=== PATIENT | female | born 1980 | race Caucasian/White ===

== ENCOUNTER 2019-04-15 12:52 | Emergency (ER) | payer OTHER, SELFPAY ==
--- NOTE | 2019-04-15 12:56 | ED.DENTAL ---
HPI - Dental/Oral General Chief complaint: Dental/Oral Stated complaint: sinus issues/toothache Time Seen by Provider: 04/15/19 13:07 Source: patient and RN notes reviewed Mode of arrival: ambulatory Limitations: no limitations History of Present Illness HPI Narrative: 38-year-old female presents with concern for left upper dental pain. Reports she recently lost a filling, her dentist told her to use [id number] pain relief gel. She reports that the pain continued to get worse despite the [id number] pain relief gel. She reports she is also had sinus congestion for 10 to 11 days. She denies taking any medications for the symptoms. MD Complaint: tooth pain Teeth map: 1. Broken tooth Related Data Allergies Allergy/AdvReac Type Severity Reaction Status Date / Time strawberry Allergy Unknown Verified 05/05/17 15:17 tramadol AdvReac Unknown NAUSEATED Verified 08/23/17 09:11 Review of Systems Review of Systems: Narrative: CONSTITUTIONAL: Denies malaise, chills, sweats, or fever. EYES: Denies visual changes ENT: Reports rhinorrhea, congestion, sinus pain. Denies otalgia or sore throat.. Reports left upper dental pain CARDIOVASCULAR: Denies chest pain, palpitations, or edema. RESPIRATORY: Denies cough or dyspnea. SKIN: Denies rash or itching. MUSCULOSKELETAL: Denies myalgia. NEUROLOGIC: Denies headache. All systems reviewed & are unremarkable except as noted in HPI and below PMFSH Comments At time of signature, agree with nursing past medical, surgical, social and family history. There is no relevant family history pertinent to the presenting complaint Exam Narrative: Exam Narrative: GENERAL: Well-appearing, well-nourished, and in no acute distress. HEAD: Normocephalic, atraumatic. EYES: PERRLA, conjunctivae clear ENT: Nares clear, turbinates erythematous with clear discharge. Mucous membranes moist. TM pearly chambers with sharp light reflex bilaterally; no tragal tenderness. Oropharynx without erythema or lesions. Tonsils not enlarged and without exudate. Caries, missing teeth, broken teeth noted. Mild left upper facial edema NECK: Supple. No lymphadenopathy. CHEST: No respiratory distress. Speaks in full sentences. HEART: Regular rate and rhythm. No murmur heard. Normal peripheral pulses. SKIN: Warm, dry, no rash. NEURO: Alert and oriented x3. PSYCH: Normal mood and affect Course Course Emergency Course: Patient is aware of diagnosis, understands and agrees to treatment plan. Anticipatory guidance given. Patient agrees to follow-up as directed and is aware of reasons to seek care at the emergency department. Portions of this record may have been created with voice recognition software Vital Signs Vital signs: Vital Signs Temperature 97.9 F 04/15/19 13:03 Pulse Rate 93 04/15/19 13:03 Respiratory Rate 16 04/15/19 13:03 Blood Pressure 138/100 H 04/15/19 13:03 Pulse Oximetry 99 04/15/19 13:03 Temperature 97.9 F 04/15/19 13:03 Pulse Rate 93 04/15/19 13:03 Respiratory Rate 16 04/15/19 13:03 Blood Pressure 138/100 H 04/15/19 13:03 Pulse Oximetry 99 04/15/19 13:03 Reviewed. Patient has been instructed to follow up with her primary care provider within the next week regarding her elevated blood pressure today. MDM - Dental/Oral MDM Narrative Medical decision making narrative: Patients pain and complaint coupled with physical findings are consistant with dentalgia. There are no focal signs of space occupying lesions that are compromising to the airway; no dysphagia, odynophagia, dysphonia, or dyspnea. No uvular deviation or soft palate edema. Patient is non-toxic appearing. The floor of the mouth is soft with no signs of Con's Angina; no induration below mandible, no neck pain. Patient is without trismus or drooling and able to swallow secretions. Patient is felt appropriate for discharge home with dental follow up. Critical Care Time Critical Care Time Critical Care Tj
[2019-04-15 13:03] VITALS: BP 138/100; PULSE 93; RESP 16; TEMP 36.6; O2SAT 99
== END 2019-04-15 13:18 | disposition home or self-care (01) ==
PROVIDERS: Emergency Provider Nurse Practitioner; PCP Internal Medicine
DX: K08.89 Other specified disorders of teeth and supporting structures (principal); N80.9 Endometriosis, unspecified
CPT/HCPCS: 99213; G0463

== ENCOUNTER 2019-05-26 18:04 | Emergency (ER) | payer OTHER, SELFPAY ==
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
[2019-05-26 18:08] VITALS: BP 123/72; PULSE 96; RESP 16; TEMP 36.7; O2SAT 99
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
== END 2019-05-26 18:58 | disposition home or self-care (01) ==
PROVIDERS: Emergency Provider Nurse Practitioner Family; PCP Internal Medicine
DX: S16.1XXA Strain of muscle, fascia and tendon at neck level, initial encounter (principal); V43.52XA Car driver injured in collision with other type car in traffic accident, initial encounter; N80.9 Endometriosis, unspecified
CPT/HCPCS: 72050; 99213; G0463

== ENCOUNTER 2020-05-13 11:47 | Emergency (ER) | payer BC, MEDICAID, SELFPAY ==
[2020-05-13 11:56] VITALS: BP 120/80; PULSE 114; RESP 20; TEMP 36.6; O2SAT 99
--- NOTE | 2020-05-13 12:15 | ED.GENADULT ---
HPI - General Adult General Chief complaint: Dental/Oral Stated complaint: DENTAL PAIN/FACIAL SWELLING Time Seen by Provider: 05/13/20 12:15 Source: patient and RN notes reviewed Mode of arrival: ambulatory Limitations: no limitations History of Present Illness HPI narrative: 39-year-old female presents with complaints of left upper dental pain for the past 2 days. Caitlin reports awaken this morning with swelling to LT side of face after having dental pain for the past 48 hours. Gargling with original Listerine, peroxide, Ibuprofen last on 05/12/20 and Tylenol last this 08:00 this morning without relief. Denies any drainage. No fever. No neck swelling. No limitation with speaking or swallowing. Has history of dental caries. Has not seen a dentist recently, due to see one next month per patient. No dental trauma. No oral lesions. Exacerbating factors consist of chewing on LT side, eating and drinking cold items. No relieving factors. No dentures or bridges. Tolerating liquids well. LMP hysterectomy. Remains active. The patient reports she have not been diagnosed with COVID-19. The patient reports she is not waiting for the results of a COVID-19 lab test. The patient reports she do not have chills, weakness, or fatigue. The patient reports she do not have a new or worsening cough or shortness of breath. Denies chest pain. The patient reports she do not have any rhinorrhea, congestion, sore throat, loss of taste or smell, nausea, vomiting, abdominal pain, and diarrhea. Denies recent traveling. Denies concerns for COVID-19 or exposures been home with limited outdoor exposure except for essential household needs, work, and return home. At this time, patient is not suspected of having COVID-19. Some parts of this dictation were generated by voice recognition software and may contain typographical and/or grammatical inaccuracies. Related Data Allergies Allergy/AdvReac Type Severity Reaction Status Date / Time strawberry Allergy Unknown Hives Verified 05/13/20 11:53 tramadol AdvReac Unknown NAUSEATED Verified 05/13/20 11:53 Review of Systems Review of Systems: Narrative: CONSTITUTIONAL: Denies fever, chills, sweats. EYES: Denies visual changes, redness, discharge. ENT: Denies rhinorrhea, congestion, sore throat, otalgia. Complains of LT upper dental pain. CARDIOVASCULAR: Denies chest pain, palpitations, edema. RESPIRATORY: Denies dyspnea, wheezing, cough. GASTROINTESTINAL: Denies abdominal pain, nausea, vomiting, diarrhea. SKIN: Denies rash or itching. MUSCULOSKELETAL: Denies acute back pain, joint pain, or myalgia. NEUROLOGIC: Denies numbness or focal weakness. PSYCHIATRIC: Denies anxiety or depression. All systems reviewed & are unremarkable except as noted in HPI and below. [facility] Past Medical History Medical History (Updated 05/14/20 @ 00:01 by Mariel Gardner) Endometriosis determined by laparoscopy Surgical History Surgical History (Updated 05/13/20 @ 12:26 by ADRIAN Brown) History of hysterectomy History of laparoscopy History of tonsillectomy Family History Family History (Updated 05/13/20 @ 12:27 by ADRIAN Brown) Father Diabetes mellitus Mother Family history of thyroid problem Social History Social History (Updated 05/13/20 @ 12:27 by ADRIAN Brown) Smoking status: Current every day smoker Tobacco type: cigarettes Second hand tobacco smoke exposure: Yes (Spouse) Alcohol intake: current Substance use: never Living arrangements: with family Occupation/Education: occupation Gender identity (if verbalized by the patient): Female Sexual Orientation (if Verbalized by the Patient): Straight or Heterosexual Comments At time of signature, agree with nurse past medical, surgical, social, and family history. There is relevant patient's past medical history pertinent to the presenting complaint, no relevant family history pertinent to the presen
== END 2020-05-13 12:34 | disposition home or self-care (01) ==
PROVIDERS: Emergency Provider Nurse Practitioner Family; PCP Internal Medicine
DX: K08.89 Other specified disorders of teeth and supporting structures (principal); K02.9 Dental caries, unspecified; F17.210 Nicotine dependence, cigarettes, uncomplicated; N80.9 Endometriosis, unspecified
CPT/HCPCS: 99213; G0463

== ENCOUNTER 2021-08-13 09:09 | Emergency (ER) | payer BC, MEDICAID, SELFPAY ==
[2021-08-13 09:21] VITALS: BP 130/92; PULSE 103; RESP 16; TEMP 37.3; O2SAT 99
--- NOTE | 2021-08-13 09:29 | ED.FEMALEGU ---
HPI - Female Genitourinary General Chief complaint: Urogenital-Female Stated complaint: bladder infection Time Seen by Provider: 08/13/21 09:30 Source: patient, RN notes reviewed and old records reviewed Mode of arrival: ambulatory Limitations: no limitations History of Present Illness HPI Narrative: 40-year-old female presents to the [facility] with complaints of I think I have a UTI. Since Thursday, 4 days has had urinary urgency, frequency, pressure and low back pain. History of a hysterectomy. Denies chances of or STDs. MD elicited complaint: UTI Onset (ago): day(s) (4) Vaginal discharge: none Urinary symptoms: Dysuria, Frequency and Foul Smelling Urine Treatment prior to arrival: none Related Data Allergies Allergy/AdvReac Type Severity Reaction Status Date / Time strawberry Allergy Unknown Hives Verified 08/13/21 09:36 tramadol AdvReac Unknown NAUSEATED Verified 08/13/21 09:36 Review of Systems Review of Systems: All systems reviewed & are unremarkable except as noted in HPI and below Constitutional: Constitutional: Reports no additional constitutional complaints, Denies chills and Denies fatigue Eyes: Eyes: Reports no additional eye complaints ENT: Reports system reviewed and no additional complaints, except as documented Cardiovascular: Cardiovascular: Reports no additional cardiovascular complaints Respiratory: Respiratory: Reports no additional respiratory complaints Gastrointestinal: Gastrointestinal: Reports no additional gastrointestinal complaints, Denies abdominal pain, Denies diarrhea, Denies nausea and Denies vomiting Genitourinary: Genitourinary: Reports as per HPI, Reports dysuria, Denies pelvic pain, Denies flank pain, Denies urinary incontinence and Denies vaginal discharge Musculoskeletal: Musculoskeletal: Reports no additional musculoskeletal complaints and Denies back pain Integumentary/Breasts: Skin/Breast: Reports system reviewed and no additional complaints, except as docu Neurologic: Reports system reviewed and no additional complaints, except as documented Psychiatric: Psychiatric: Reports no additional psychiatric complaints Endocrine: Endocrine: Denies fatigue Allergic/Immunologic: Allergic/Immunologic: Reports no additional allergic/immunologic complaints PMF Past Medical History Medical History Endometriosis determined by laparoscopy Surgical History Surgical History History of hysterectomy History of laparoscopy History of tonsillectomy Family History Family History Father Diabetes mellitus Mother Family history of thyroid problem Social History Social History Smoking status: Current every day smoker Tobacco type: cigarettes Second hand tobacco smoke exposure: Yes (Spouse) Alcohol intake: current Substance use: never Gender identity (if verbalized by the patient): Female Sexual Orientation (if Verbalized by the Patient): Straight or Heterosexual Comments At the time of my signature, I reviewed and agree with the nursing past medical, surgical, social, and family history. There is no relevant family history pertinent to the patient complaint. Exam Const: General: healthy appearing, no acute distress and alert Nutritional Appearance: well nourished Orientation/consciousness: patient oriented x3 Limitations: no limitations HENMT: Head: normal to inspection Eyes: Conjunctivae: conjunctivae normal Pupils: Equal, round and reactive pupils present Neck: Neck: normal visual inspection, no lymphadenopathy and no meningeal signs Chest: Chest palpation & inspection: normal inspection of the chest and abnormal inspection of the chest Resp: Effort & Inspection: normal respiratory effort Auscultation: clear to auscultation b
== END 2021-08-13 09:40 | disposition home or self-care (01) ==
PROVIDERS: Emergency Provider Nurse Practitioner
DX: R30.0 Dysuria (principal); F17.210 Nicotine dependence, cigarettes, uncomplicated; N80.9 Endometriosis, unspecified
CPT/HCPCS: 81003; 87077; 87086; 87186; 99213; G0463

== ENCOUNTER 2022-01-06 18:19 | Emergency (ER) | payer OTHER, BC, MEDICAID, SELFPAY ==
--- NOTE | 2022-01-06 18:28 | ED.URI ---
HPI - URI/Sore Throat General Chief Complaint: Upper Respiratory Infection Stated Complaint: Coughing, Headaches Time Seen by Provider: 01/06/22 19:20 Source: patient and RN notes reviewed Mode of arrival: ambulatory Limitations: no limitations History of Present Illness HPI Narrative: 31-year-old female presents concern. Reports symptoms started 5 days ago and she was febrile until Thursday. She reports low-grade fever today. She reports she has been taking [id number] medications relief. She denies sore throat, shortness of breath. MD elicited complaint: cough Related Data Allergies Allergy/AdvReac Type Severity Reaction Status Date / Time strawberry Allergy Unknown Hives Verified 01/06/22 19:01 tramadol AdvReac Unknown NAUSEATED Verified 01/06/22 19:01 Review of Systems Review of Systems: CONSTITUTIONAL: Reports malaise, low-grade fever. EYES: Denies visual changes, redness, or discharge. ENT: Reports rhinorrhea, congestion. Denies sinus pain, otalgia and sore throat. CARDIOVASCULAR: Denies chest pain, palpitations, or edema. RESPIRATORY: Reports cough, chest congestion. Denies dyspnea. GASTROINTESTINAL: Denies abdominal pain, nausea, vomiting, diarrhea SKIN: Denies rash or itching. MUSCULOSKELETAL: Denies myalgia. NEUROLOGIC: Reports headache. All systems reviewed & are unremarkable except as noted in HPI and below PMFSH Past Medical History Medical History Endometriosis determined by laparoscopy Surgical History Surgical History History of hysterectomy History of laparoscopy History of tonsillectomy Family History Family History Father Diabetes mellitus Mother Family history of thyroid problem Social History Social History Smoking status: Current every day smoker Tobacco type: cigarettes Second hand tobacco smoke exposure: Yes (Spouse) Alcohol intake: current Substance use: never Gender identity (if verbalized by the patient): Female Sexual Orientation (if Verbalized by the Patient): Straight or Heterosexual Comments At time of signature, agree with nursing past medical, surgical, social and family history. There is no relevant family history pertinent to the presenting complaint Exam Narrative: GENERAL: Nontoxic-appearing and in no acute distress. HEAD: Normocephalic EYES: PERRLA, conjunctivae clear ENT: Nares clear, clear discharge. Mucous membranes moist. TM pearly chambers with dull light reflex bilaterally; no tragal tenderness. Oropharynx not erythematous without lesions. Tonsils not enlarged and without exudate, no drooling, no hoarseness, no trismus, uvula midline. NECK: Supple. No lymphadenopathy CHEST: Clear to auscultation, breath sounds equal. No wheezing, rhonchi, rales, or stridor. No respiratory distress, speaks in full sentences. Cough noted HEART: Regular rate and rhythm. No murmur heard. SKIN: Warm, dry, no rash. NEURO: Alert and oriented x3. PSYCH: Normal mood and affect Course Course Emergency Course: Patient is aware of diagnosis, understands and agrees to treatment plan. Anticipatory guidance given. Patient agrees to follow-up as directed and is aware of reasons to seek care at the emergency department. Portions of this record may have been created with voice recognition software Level of Care: Express Care Visit Vital Signs Vital signs: Reviewed. MDM - URI/Sore Throat MDM Narrative Medical decision making narrative: Differential diagnosis considered: Corbett virus, strep pharyngitis, allergic rhinitis, upper respiratory tract infection, sinusitis, rhinosinusitis, nasopharyngitis. viral pharyngitis, otitis media, otitis externa, pneumonia, bronchitis, viral cough syndrome, viral syndrome, and influenza. Exam findings show no acute concer
[2022-01-06 18:47] VITALS: BP 100/65; PULSE 98; RESP 18; TEMP 37.9; O2SAT 100
== END 2022-01-06 19:45 | disposition home or self-care (01) ==
PROVIDERS: Emergency Provider Nurse Practitioner; PCP Nurse Practitioner Family
DX: J40 Bronchitis, not specified as acute or chronic (principal); F17.210 Nicotine dependence, cigarettes, uncomplicated; N80.9 Endometriosis, unspecified
CPT/HCPCS: 87804; 99213; G0463

== ENCOUNTER 2022-02-08 13:54 | Emergency (ER) | payer OTHER, BC, MEDICAID, SELFPAY ==
[2022-02-08 14:09] VITALS: BP 114/76; PULSE 92; RESP 18; TEMP 36.5; O2SAT 100
--- NOTE | 2022-02-08 14:38 | ED.URI ---
HPI - URI/Sore Throat General Chief Complaint: Upper Respiratory Infection Stated Complaint: Sinus Time Seen by Provider: 02/08/22 14:38 Source: patient Mode of arrival: ambulatory History of Present Illness HPI Narrative: 41 y/o female presented for c/o left facial swelling, tightness, and ear pain since yesterday. States it feels like her previous sinus infections. She also endorses 'bad teeth.' Pain with chewing. Denies tinnitus, dizziness, nausea, vomiting, fever or chills. Taking tylenol and ibuprofen for symptoms. Related Data Home Medications Medication Instructions Recorded Confirmed alprazolam 0.25 mg tablet 0.25 mg PO DIRECTED 02/08/22 02/08/22 buspirone 10 mg tablet 10 mg PO DAILY 02/08/22 02/08/22 Allergies Allergy/AdvReac Type Severity Reaction Status Date / Time strawberry Allergy Unknown Hives Verified 02/08/22 14:03 tramadol AdvReac Unknown NAUSEATED Verified 02/08/22 14:03 Review of Systems Review of Systems: CONSTITUTIONAL: Denies body aches, fever, chills ENT: Denies rhinorrhea, congestion, sore throat, or otalgia. Reports left facial pain CARDIOVASCULAR: Denies chest pain, palpitations RESPIRATORY: Denies cough or dyspnea. SKIN: Denies rash, itching, or wounds. MUSCULOSKELETAL: Denies myalgia. NEUROLOGIC: Denies headache, numbness, tingling, or weakness. [facility] Past Medical History Medical History Endometriosis determined by laparoscopy Surgical History Surgical History History of hysterectomy History of laparoscopy History of tonsillectomy Family History Family History Father Diabetes mellitus Mother Family history of thyroid problem Social History Social History Smoking status: Current every day smoker Tobacco type: cigarettes Second hand tobacco smoke exposure: Yes (Spouse) Alcohol intake: current Substance use: never Gender identity (if verbalized by the patient): Female Sexual Orientation (if Verbalized by the Patient): Straight or Heterosexual Comments At time of signature, I have reviewed and agree with nursing past medical, surgical, social and family history unless otherwise noted. Please see nursing chart for further information. There is no relevant family history pertinent to the presenting complaint Exam Narrative: GENERAL: Appears in pain; no acute distress. HEAD: Normocephalic, atraumatic. EYES: EOMI. No redness or drainage. Conjunctivae normal. ENT: Dental pain with palpation location of #13; multiple broken teeth, caries, and missing teeth; Mucous membranes pink and moist. TMs normal bilaterally. Throat normal. Uvula midline. NECK: Normal AROM. No lymphadenopathy. CHEST: Clear to auscultation. HEART: Regular rate and rhythm. No murmur appreciated. SKIN: Warm, dry, no rash. Normal skin turgor. NEURO: No focal deficits. Alert and oriented x3. Course Course Emergency Course: Patient is aware of diagnosis, understands and agrees to treatment plan. Anticipatory guidance given. Patient agrees to follow-up as directed and is aware of reasons to seek care at the emergency department. Portions of this record may have been created with voice recognition software Level of Care: Express Care Visit Vital Signs Vital signs: Vital Signs Temperature 97.7 F 02/08/22 14:09 Pulse Rate 92 02/08/22 14:09 Respiratory Rate 18 02/08/22 14:09 Blood Pressure 114/76 02/08/22 14:09 Pulse Oximetry 100 02/08/22 14:09 Oxygen Delivery Room Air 02/08/22 14:09 Temperature 97.7 F 02/08/22 14:09 Pulse Rate 92 02/08/22 14:09 Respiratory Rate 18 02/08/22 14:09 Blood Pressure 114/76 02/08/22 14:09 Pulse Oximetry 100 02/08/22 14:09 Oxygen Delivery Room Air 02/08/22 14:09 MDM - URI/S
== END 2022-02-08 14:47 | disposition home or self-care (01) ==
PROVIDERS: Emergency Provider Nurse Practitioner Family; PCP Nurse Practitioner Family
DX: K02.9 Dental caries, unspecified (principal); F17.210 Nicotine dependence, cigarettes, uncomplicated; N80.9 Endometriosis, unspecified
CPT/HCPCS: 99213; G0463

== ENCOUNTER 2022-08-02 08:56 | Emergency (ER) | payer OTHER, MEDICAID, SELFPAY ==
--- NOTE | 2022-08-02 09:02 | ED.DENTAL ---
HPI - Dental/Oral General Chief complaint: Dental/Oral Stated complaint: TOOTHACHE Time Seen by Provider: 08/02/22 09:02 Source: patient and RN notes reviewed History of Present Illness HPI Narrative: Patient is a 41-year-old female presents to urgent care with complaints of left upper dental pain. Patient states it started approximately 2-3 days ago. Patient has had poor dental hygiene for many years and does have a dentist appointment in September. Denies any fever, nausea. Patient has been taking dual action Advil with acetaminophen. No other acute complaints. Distress noted. Patient aware of the plan of care. Some parts of this dictation were generated by voice recognition software and may contain typographical and/or grammatical inaccuracies. Related Data Home Medications Medication Instructions Recorded Confirmed alprazolam 0.25 mg tablet 0.25 mg PO DIRECTED 02/08/22 08/02/22 buspirone 10 mg tablet 10 mg PO DAILY 02/08/22 08/02/22 Allergies Allergy/AdvReac Type Severity Reaction Status Date / Time strawberry Allergy Unknown Hives Verified 08/02/22 09:08 tramadol AdvReac Unknown NAUSEATED Verified 08/02/22 09:08 Review of Systems Review of Systems: CONSTITUTIONAL: Denies fever, chills, or sweats. EYES: Denies visual changes, redness, or discharge. ENT: Denies rhinorrhea, congestion, sore throat, or otalgia. Reports of left upper dental pain and swelling CARDIOVASCULAR: Denies chest pain, palpitations, or edema. RESPIRATORY: Denies cough or dyspnea. GASTROINTESTINAL: Denies abdominal pain, nausea, vomiting, or diarrhea. GENITOURINARY: Denies dysuria or hematuria. SKIN: Denies rash or itching. MUSCULOSKELETAL: Denies back pain, joint pain, or myalgia. NEUROLOGIC: Denies headache, numbness, or weakness. All other systems reviewed are negative, except as documented in HPI. FORMERLY [facility] Past Medical History Medical History Endometriosis determined by laparoscopy Surgical History Surgical History History of hysterectomy History of laparoscopy History of tonsillectomy Family History Family History Father Diabetes mellitus Mother Family history of thyroid problem Social History Social History Smoking status: Current every day smoker Tobacco type: cigarettes Second hand tobacco smoke exposure: Yes (Spouse) Alcohol intake: current Substance use: never Living arrangements: with family Occupation/Education: occupation Gender identity (if verbalized by the patient): Female Sexual Orientation (if Verbalized by the Patient): Straight or Heterosexual Comments At the time of my signature, I reviewed and agree with the nursing past medical, surgical, social, and family history. There is no relevant family history pertinent to the patient complaint. Exam Narrative: GENERAL: This is a well-nourished, well-developed patient, in no apparent distress. HEAD: normocephalic, atraumatic. EYES: PERRL. Sclera clear/white. Vision is grossly intact. EARS: External ears normal NOSE: External nose normal with no obvious nasal discharge, nares without redness, no rhinorrhea. THROAT: Mucous membranes moist DENTAL: Moderate erythema/edema with notable dental abscess above the left upper canine, avulsed dentition with large caries throughout,. On all/gingivitis NECK: Neck supple, SKIN: warm, intact with no suspicious lesions or rash, good texture and turgor. NEURO: awake, alert, and oriented to person, place and time. There were no obvious focal neurologic abnormalities. EXTREMITIES: No clubbing, cyanosis, or edema. Course Course Level of Care: Express Care Visit Vital Signs Vital signs: Vital Signs Temperature 98.7 F 08/02/22 09:11 Pulse Rate 91 08/02/22 09:11 Respi
[2022-08-02 09:11] VITALS: BP 133/82; PULSE 91; RESP 16; TEMP 37.1; O2SAT 100
== END 2022-08-02 09:28 | disposition home or self-care (01) ==
PROVIDERS: Emergency Provider Nurse Practitioner Family; PCP Nurse Practitioner Family
DX: K04.7 Periapical abscess without sinus (principal); K02.9 Dental caries, unspecified; F17.210 Nicotine dependence, cigarettes, uncomplicated
CPT/HCPCS: 99213; G0463

== ENCOUNTER 2023-11-07 09:41 | Outpatient (CLI) | payer OTHER, SELFPAY ==
--- NOTE | ~2023-11-07 | US_ITS ---
EXAMINATION: US pelvic complete w TV DATE: 11/07/2023 10:32 INDICATION: R10.2 - Pelvic and perineal pain TECHNIQUE: Multiple transabdominal and endovaginal sonographic images of the pelvis were obtained. COMPARISON: None. FINDINGS: Uterus: Surgically absent. Right Ovary: Not confidently identified. Large anechoic area with areas of shadowing in the right adn exa. Left Ovary: 5.3 x 3.7 x 3.4 cm. Vascular flow is present. 3.1 cm circumscribed cystic ovarian lesion with nodular appearing nonvascular intraluminal echogenicity and a thick septum. Somewhat tubular julio earing, 3.5 cm, serpiginous, anechoic structure adjacent to the ovary. There is no free fluid in the pelvis. IMPRESSION: Complex 3.1 cm left ovarian cyst. Possible hydrosalpinx on the left. Right ovary not confidently visualized. Large anechoic area in the right adnexa may represent artifact from bowel or large adnexal or other l ower abdominal/pelvic lesion. Recommend pelvic MRI without and with contrast for further evaluation. Reviewed, dictated and finalized at location K. IMPRESSION: Complex 3.1 cm left ovarian cyst. Possible hydrosalpinx on the left. Right ovary not confidently visualized. Large anechoic area in the right adnexa may represent artifact from bowel or la rge adnexal or other lower abdominal/pelvic lesion. Recommend pelvic MRI without and with contrast for further evaluation.
== END 2023-11-07 09:42 | disposition home or self-care (01) ==
PROVIDERS: PCP Nurse Practitioner; Visit Provider Obstetrics & Gynecology
DX: R10.2 Pelvic and perineal pain (principal); N83.202 Unspecified ovarian cyst, left side
CPT/HCPCS: 76830; 76856

== ENCOUNTER 2023-12-03 12:32 | Outpatient (CLI) | payer OTHER, SELFPAY ==
--- NOTE | ~2023-12-03 | MR_ITS ---
EXAMINATION: MR pelvis wo/w con DATE: 12/03/2023 13:46 INDICATION: Ovarian cyst TECHNIQUE: Magnetic resonance imaging (MRI) of the pelvis was performed without and with 17 mL Multih ance intravenous contrast. Fullfield sequences of the pelvis included axial and coronal T2-weighted S S FSE, coronal 2D FIESTA, axial T1-weighted FSPGR, axial dual-echo T1-weighted FSPGR and axial T1 shahla ghted LAVA. Small field of view sequences included axial, sagittal and coronal T2-weighted FSE cente red on the uterus and adnexa. Postcontrast sequences included a time course axial T1-weighted LAVA w ith full-field of view of the pelvis. COMPARISON: Pelvic ultrasound dated 11/07/2023 FINDINGS: The uterus is not identified and has likely been surgically resected. Fluid-filled tubular and serpig inous left-sided hydrosalpinx measuring up to 10 mm in maximal diameter. Imaging is a T2 hyperintense bilateral ovarian follicles measuring up to 1.4 cm on the left and 1.3 cm on the right. Correlation of the configuration complex cystic lesion identified on the prior ultrasound suggests this represent s the fimbrial side of the dilated fallopian tube. Visualized portion of the bowels are unremarkable. Bladder is normal. No pathologically enlarged pelvic or inguinal lymphadenopathy. 1.3 cm Bartholin's gland cyst at the left side of the introitus. There is no free fluid in the pelvis. T1 hyperintense fat saturating hemangioma at the right side of the L5 vertebral body. Bones are otherwise unremarkabl e with otherwise normal marrow signal. IMPRESSION: 1. Status post hysterectomy with left-sided hydrosalpinx with a few bilateral simple appearing bilate ral ovarian follicles. No suspicious ovarian lesions identified. Reviewed, dictated and finalized at location B. IMPRESSION: 1. Status post hysterectomy with left-sided hydrosalpinx with a few bilateral s imple appearing bilateral ovarian follicles. No suspicious ovarian lesions iden tified.
== END 2023-12-03 12:33 | disposition home or self-care (01) ==
PROVIDERS: PCP Obstetrics & Gynecology; Visit Provider Obstetrics & Gynecology
DX: N83.299 Other ovarian cyst, unspecified side (principal)
CPT/HCPCS: 72197; A9577

== ENCOUNTER 2023-12-28 01:33 | Day surgery (SDC) | payer OTHER, SELFPAY ==
--- NOTE | 2023-12-21 16:22 | PC.NURSE ---
Report to the Outpatient Waiting Room, entrance under the green pavilion located off [facility], at time ___0930____ on date __[id number] . Planned Procedure Time: ___1130 .? Time changes happen often and if your time is changed the preop area will call you the afternoon before. - You and your visitor will be asked to self-screen and do not enter if you have any COVID symptoms. Please call surgeon if you need to reschedule. - A mask is optional within the hospital at this time. Patients may have clear liquids (water, carbonated beverages, clear teas, apple juice) until 3 hours prior to surgery with a maximum of 20 ounces. (please stop at 0830) - No food from midnight until time of surgery and no smoking Take only the following medications with a SIP of water on the morning of surgery: n/a (ONLY TAKE YOUR XANAX IF YOU ARE HAVING ANXIETY) DO NOT STOP ANY OF YOUR OTHER PRESCRIPTION MEDICATIONS PRIOR TO SURGERY EXCEPT THE FOLLOWING: ALL VITAMINS AND SUPPLEMENTS. TAKE THE LAST DOSE ON 12-24-23. ALL OTHER MEDS TAKE AT NIGHT (LIKE NORMAL) Please no make-up, nail belarusian, hairspray, perfume, deodorant, or body powder the day of surgery.? No jewelry (including any body piercings) or valuables the day of surgery, leave them at home.? Please take a shower or bath the night before, or the morning of, surgery with an antibacterial soap.? Wear comfortable, loose fitting clothing.? - Jewelry must be removed prior to entering the operating room.? Rings and piercings that are not removed may be cut off. - The hospital will not accept responsibility for valuables.? - Please leave all valuables, including medications, at home the day of surgery. If you are going home after surgery, a licensed flatbed driver must drive you home.? - NO public transportation without another adult if you receive anesthesia. - We recommend that an adult stay with you for 24 hours following discharge. - We also recommend that you do not drive, make important decision, drink alcoholic beverages, or take any drugs that were not prescribed by your health care provider for at least 24 hours after your discharge time. Follow any additional instructions given to you from your surgeon. Telephone instructions given to ___Caitlin(patient) and asked if any additional questions and then verbalized understanding. Patient advised to call surgeon office or pre surgery nurse liaison [phone] if any additional questions.
[2023-12-21 16:42] VITALS: BMI 31.3
[2023-12-28] VITALS (11 sets, daily range): BP systolic 102–127; BP diastolic 56–75; PULSE 59–78; RESP 12–18; TEMP 36.2; O2SAT 96–100
--- NOTE | 2023-12-28 07:15 | P.HPUP_ITS ---
History and Physical Update Update Date/Time: 12/28/23 07:16 History and Physical has been reviewed, including an updated exam of the patient. There are NO changes in the patient's condition. Risks, benefits, and alternatives have been discussed and questions answered. Patient agrees to proceed with diagnostic laparoscopy (entry at [facility]), bilateral salpingectomy, and possible ovarian cystectomy.
[2023-12-28] MEDS: KETOROLAC 15 MG/ML VIAL (*BKC) IV PUSH (10:04)
[2023-12-28] MEDS: ACETAMINOPHEN 500 MG TABLET 1000 MG PO (10:05)
[2023-12-28] MEDS: LACTATED RINGERS 1,000 ML 30 ML IV CONT ×2 (10:06→13:00)
[2023-12-28] MEDS: BUPIVACAINE/EPINEPHRINE 0.5% 10 ML VIAL 30 ML INFILTRATE (11:50)
--- NOTE | 2023-12-28 12:52 | W.PM.PROC2 ---
Procedure Note - Detailed Date of Procedure 12/28/23 Pre-op Diagnosis hydrosalpinx, pelvic pain Post-op Diagnosis Same Procedure Performed Laparoscopic left salpingectomy (removal of hydrosalpinx) Surgeon Leslie Kelly MD Anesthesia General and Local (21cc of 0.5% marcaine w/ epi) Findings Uterus, cervix and right fallopian tube surgically absent. Bilateral ovaries normal without abnormalities. Left fallopian tube with hydrosalpinx; tortuous and adhered to IP and left ovary-- removed w/o issue. Good hemostasis at end of case. No scar tissue or endometrial implants noted. Description of Procedure Caitlin was taken to the operating room where she was placed under general endotracheal anesthesia without complications. She was then prepped and draped in the usual sterile fashion in the dorsal lithotomy position with her legs in low Yousif stirrups and her arms tucked at her side. A time-out was performed and no preoperative antibiotics were indicated. My attention was turned down below where her bladder was drained via straight catheterization. A sponge on a stick was placed within the vagina. My gloves were changed and my attention was turned to her abdomen. A 5 mm incision was made in [place] point (OG was verified in place) and a 5mm trocar was placed under direct visualization without complications. Once intra-abdominal placement was confirmed the abdomen was insufflated with carbon dioxide gas. She was then placed in Trendelenburg and two additional 5 mm ports were placed in the left and right lower quadrants under direct visualization without complications. The above findings were noted. The left fallopian tube was then elevated and the ovary and IP were identified. Using the LigaSure monopolar hook, the scar tissue/fat,mesosalpinx was incised. With traction/counter traction the incision was extended and the fallopian tube was partially freed from the IP. Using the LigaSure device, the proximal end was clamped, coagulated and cut and freed. The thin filmy adhesions towards the distal end were then easily removed, the remaining portion of mesosalpinx/scar tissue was cross clamped, coagulated and transected with the LigaSure device and the fallopian tube was free. Good hemostasis was noted. The left 5mm port was upsized to an 8mm trocar under direct visualization without issue. A small bag was then placed within the abdomen and the tube was then placed within the bag. Using Rohan clamps, the fallopian tube was grasped and the fluid was suctioned out of the bag. The tube and bag were then removed from the abdomen. The Hi Gomes device was then placed in the left lower quadrant trocar site and the incision was reapproximated using a 0-Vicryl stitch. Good hemostasis was noted. All instruments were removed from the abdomen. The insufflation was released and the trocars were removed. The 3 laparoscopic incision sites were reapproximated using 4-0 Monocryl and covered with Dermabond. The incisions were then infiltrated using 0.5% Marcaine with epinephrine for further pain control. The sponge on a stick was removed from her vagina. Sponge, lap, instrument, and needle counts were correct at the end of the procedure. Patient was awoken from general anesthesia and taken to recovery with plans of same-day discharge home. Estimated Blood Loss 5 IV Fluids 1,000 Urine Output 350 Pathology Yes (left fallopian tube) Complications No immediate complications Condition Stable Disposition Same day [facility] Billing Surgery - Charge Forward: Surgery Billing
[2023-12-28] MEDS: fentaNYL CITRATE INJ (*CRX) 100 MCG/2 ML VIAL 25 MCG IV PUSH ×7 (13:14→14:02)
[2023-12-28] MEDS: ONDANSETRON INJ 4 MG/2 ML VIAL IV PUSH (13:52)
[2023-12-28] MEDS: oxyCODONE HCL (*CRX) 5 MG TAB IR PO (14:34)
== END 2023-12-28 15:27 | disposition home or self-care (01) ==
PROVIDERS: Visit Provider Obstetrics & Gynecology
PROC: (CPT 49320; principal; 2023-12-28 11:30)
DX: N70.11 Chronic salpingitis (principal); N83.8 Other noninflammatory disorders of ovary, fallopian tube and broad ligament; N80.9 Endometriosis, unspecified; F17.210 Nicotine dependence, cigarettes, uncomplicated; Z79.891 Long term (current) use of opiate analgesic; Z98.890 Other specified postprocedural states
CPT/HCPCS: 58661; 88302; 88305; A9270; J1100; J1885; J2003; J2250; J2405; J2704; J3010; J7030; J7120

== ENCOUNTER 2024-02-23 14:11 | Outpatient (CLI) | payer OTHER, SELFPAY ==
--- NOTE | ~2024-02-23 | MM_ITS ---
EXAMINATION: MM screening lisa BI w francesco HISTORY: Screening TECHNIQUE: Craniocaudal and mediolateral oblique 3-D tomosynthesis images were obtained and synthetic 2-D images were generated. CAD analysis was submitted and interpreted. COMPARISON: No prior mammogram is available for comparison at this institution. BREAST PARENCHYMAL COMPOSITION: Dense: The breasts are heterogeneously dense, which may obscure small masses FINDINGS: There is no evidence of suspicious mass, calcification, or architectural distortion to sugg est malignancy in either breast. There has been no suspicious interval change. IMPRESSION: 1. No mammographic evidence of malignancy. 2. Recommend routine screening mammography in one year. BI-RADS Category 1: Negative Reviewed, dictated and finalized at location B. RNAL CONTROLS ANALYST
== END 2024-02-23 14:12 | disposition home or self-care (01) ==
LOC: ANHIMG 14:12
PROVIDERS: Visit Provider Obstetrics & Gynecology
DX: Z12.31 Encounter for screening mammogram for malignant neoplasm of breast (principal)
CPT/HCPCS: 77063; 77067

== ENCOUNTER 2024-11-17 16:31 | Emergency (ER) | payer OTHER, SELFPAY ==
--- NOTE | ~2024-11-17 | CT_ITS ---
EXAMINATION: CT abdomen pelvis w con DATE: 11/17/2024 17:49 INDICATION: Left lower quadrant and pelvic pain TECHNIQUE: Computed tomography (CT) of the abdomen and pelvis was performed with 100 cc Omnipaque 350 intravenous contrast. The dose-length product was 711.96 mGy-cm. Automated exposure control and iterative reconstruction technique were employed. COMPARISON: CT dated 02/05/2011. FINDINGS: Lung bases unremarkable. Heart size normal. No significant vascular abnormality. No lymphadenopathy. The liver, spleen, pancreas, adrenal glands and kidneys are unremarkable. Gallbladder is present. Nonobstructive bowel gas pattern. Normal appendix. No evidence for acute diverticulitis. No abnormal pelvic masses or fluid collections. No free air or free fluid. No significant vascular abnormality. No acute osseous abnormality. IMPRESSION: 1. No acute abdominal abnormality. Reviewed, dictated and finalized at location O.
--- OUTSIDE RECORDS SUMMARY | 2024-11-17 16:36 | XMS_ITS | Clinical Summary ---
Author Organization [facility] Address [address] [place] [id number] Care Team Providers Care Courtroom Reporter Name Role Phone Tony Sparks MD Primary Care Provider [phone] Tony Sparks MD Unavailable [phone] Allergies Active Allergy Reactions Criticality Noted Date Comments [place] Hives Reaction: Hives, Tramadol Dizziness Low 10/11/2019 Medications acetaminophen (TYLENOL) 500 mg tablet Take 1,000 mg by mouth as needed for pain Active acetaminophen (TYLENOL) 500 mg tabletIndicatio ns:Pain Take 2 tablets (1,000 mg total) by mouth every 6 (six) hours as needed for pain 60 tablet 1 07/09/2020 Active ibuprofen (ADVIL,MOTRIN) 600 mg tablet Take 1 tablet (600 mg total) by mouth every 6 (six) hours as needed for pain (pain) 60 tablet 2 07/09/2020 Active traZODone (DESYREL) 50 mg tabletIndicatio ns:insomnia post surgery Take 1 tablet (50 mg total) by mouth nightly 30 tablet 1 07/25/2020 Active Active Problems Problem Noted Date Diagnosed Date Cough 06/13/2020 Dysuria 06/13/2020 Rhinitis 06/13/2020 Pelvic mass in female 06/13/2020 Overview (06/13/2020): Added automatically from request for surgery [id number] Pelvic pain in female 06/13/2020 Overview (06/13/2020): Added automatically from request for surgery [id number] Adnexal tenderness 10/11/2019 Anxiety 10/11/2019 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 Insomnia 10/11/2019 Tobacco dependence syndrome 10/11/2019 Headache 08/05/2017 Surgical History Surgery Date Site/Laterality Comments HYSTERECTOMY 03/16/2009 - 03/15/2010 TONSILECTOMY, ADENOIDECTOMY, BILATERAL MYRINGOTOMY AND TUBES 03/16/1988 - 03/15/1989 LAPAROSCOPY 07/09/2020 Medical History Medical History Date Comments Endometritis Endometriosis PONV (postoperative nausea and vomiting) with tonsillectomy Motion sickness only if reading Family History Medical History Relation Name Comments Diabetes type II Father Diabetes me llitus type 2; Ovarian cancer Father's Sister Cancer, ov edgardo; Breast cancer Maternal Grandmother Breast cancer Maternal cousin Thyroid disease Mother Thyroid dise ase; Anesthesia problems Neg Hx Relation Name Status Comments Father Father's Sister Maternal Grandmother Maternal cousin Mother Social History Tobacco Use Types Packs/Day Years Used Date Smoking Tobacco: Former Cigarettes 0.3 21.3 2 000 - 07/02/2020 Smokeless Tobacco: Never Alcohol Use Standard Drinks/Week Comments No 0 (1 standard drink = 0.6 oz pur e alcohol) AUDIT-C Answer Date Recorded Q1: How often do you have a drink containing alc ohol? Never 07/02/2020 Average Number of Drinks Not on file 021 Q3: How often do you have si x or more drinks on one occasion? Never 07/02/2020 Comments No Sex and Gender Information Value Date Recorded Sex Assigned at Not on file Legal Sex Female 1:58 PM [employer] Gender Identity Not on file Sexual Orientation Not on file Obstetrics History Para Term AB IAB SAB Ectopic Multiple Livin g Live Births 2 2 2 2 Date Outcome GA Total Labor Labor/2nd/3rd Weight Sex Type Anes PTL Marta A1 A5 Name Clin Term Term Last Filed Vital Signs Vital Sign Reading Time Taken Comments Blood Pressure 102/65 07/25/2020 10:05 AM CDT Pulse 89 07/25/2020 10:05 AM CDT Temperature 36.7 C (98 F) 07/25/2020 10:05 AM CDT Respiratory Rate 20 07/25/2020 10:05 AM CDT Oxygen Saturation 98% 07/25/2020 10:05 AM CDT Inhaled Oxygen Concentration - - Weight 82.1 kg (181 lb 1.6 oz) 07/25/2020 10:05 AM CDT Height 170.2 cm (5' 7) 07/25/2020 10:05 AM CDT Body Mass Index 28.36 07/25/2020 10:05 AM CDT Plan of Treatment Not on file Insurance [employer] [employer] Care Teams Courtroom Reporter Relationship Specialty Start Date End Date Tony Sparks MD PCP - General Internal Medicine 10/11/19 Tony Sparks MD Referring Physician Internal Medicine 10/11/19
[2024-11-17 17:03] VITALS: BP 146/76; PULSE 85; RESP 18; TEMP 36.9; O2SAT 100
[2024-11-17 17:11] LABS: BEDSIDEPREGUCG Negative (Negative)
--- NOTE | 2024-11-17 17:11 | ED.GENADULT ---
HPI - General Adult General Chief complaint: Abdominal Pain Stated complaint: lower abd pain Time Seen by Provider: 11/17/24 16:50 History of Present Illness HPI narrative: This is a 43-year-old female with history of endometriosis who has monthly abdominal pain presenting for monthly abdominal pain. Patient says she has had pain similar to the past but never this severe. Only last for 1-2 days at a time before resolving. This is been ongoing for 4 days. She has been using Motrin Tylenol with no relief. No nausea vomiting fevers diarrhea vaginal bleeding or other complaints Related Data Home Medications ?Medication ?Instructions ?Recorded ?Confirmed ?Last Taken ?Type escitalopram oxalate 5 mg tablet 5 mg PO HS 10/26/23 12/28/23 12/27/23 History hydroxyzine HCl 25 mg tablet 25 mg PO HS 10/26/23 12/28/23 12/27/23 History ascorbate calcium (vitamin C) 500 1 mg PO HS 12/21/23 12/28/23 12/24/23 History mg capsule ascorbic acid-vitamin E-zinc tablet 1 tablet PO HS 12/21/23 12/28/23 12/24/23 History ascorbic acid-zinc sulfate 1 tab-cap PO HS 12/21/23 12/28/23 12/24/23 History omega-3 fatty acids 1 cap PO HS 12/21/23 12/28/23 12/24/23 History vitamin B complex 1 tablet PO HS 12/21/23 12/28/23 12/24/23 History Allergies Allergy/AdvReac Type Severity Reaction Status Date / Time strawberry Allergy Unknown Hives Verified 11/17/24 17:10 tramadol AdvReac Unknown NAUSEATED Verified 11/17/24 17:10 [facility] Past Medical History Medical History Endometriosis determined by laparoscopy Surgical History Surgical History History of ankle surgery 12/31/23 History of hysterectomy History of laparoscopy (12/28/23) Laparoscopic left salpingectomy (removal of hydrosalpinx) History of tonsillectomy Family History Family History Father Diabetes mellitus Mother Family history of thyroid problem Social History Social History Years smoked: 24 Smoking status: Former smoker Tobacco type: cigarettes Second hand tobacco smoke exposure: No Smoking end date: 12/14/22 Alcohol intake: never Substance use: never Substance use type: does not use Last use: 2022 Do You Feel Safe in your Home?: Yes Lack of Transportation: No Lack of Food: Never True Current Housing: I Have Housing Concerned About Future Housing: No Difficulty Paying Gas/Electric Bills: No Difficulty Paying for Meds: No Currently Unemployed: No Education: High School Diploma/GED Difficulty w/ Childcare or Family Care: No Living arrangements: with family Occupation/Education: occupation Gender identity (if verbalized by the patient): Female Sexual Orientation (if Verbalized by the Patient): Straight or Heterosexual Spiritual care concerns: No Exam Narrative: APPEARANCE: No apparent distress. Head: atraumatic. EYES: EOMI, NOSE: Atraumatic NECK: Trachea midline RESPIRATORY: No increased rate of breathing CARDIOVASCULAR: RRR, ABDOMINAL: Left lower abdominal tenderness without guarding rebound, abdomen is soft MUSCULOSKELETAl: No obvious deformities NEURO: Alert. Moving 4/4 extremities SKIN:: Warm, dry. Normal color PSYCHIATRIC: Normal affect Course Vital Signs Vital signs: Vital Signs Temperature 98.5 F 11/17/24 17:03 Pulse Rate 85 11/17/24 17:03 Respiratory Rate 18 11/17/24 17:03 Blood Pressure 146/76 H 11/17/24 17:03 Pulse Oximetry 100 11/17/24 17:03 Oxygen Delivery Room Air 11/17/24 17:03 Temperature 98.5 F 11/17/24 17:03 Pulse Rate 85 11/17/24 17:03 Respiratory Rate 18 11/17/24 17:03 Blood Pressure 146/76 H 11/17/24 17:03 Pulse Oximetry 100 11/17/24 17:03 Oxygen Delivery Room Air 11/17/24 17:03 Medical Decision Making [facility] Narrative Medical decision making narrative: -Course: 43-year-old female history of endometriosis presenting for her monthly abdominal pain. Is worse than usual has been going for [address] abdomen pelvis was unremarkable. Labs within normal limits. Pain was controlled in the ED. She will be discharged with her usual pain medications and 6 oxycodone for breakthrough pain. Given OBGYN follow-up and return precautions. -DDX includes but is not limited to: Endometriosis, ovarian cyst, ovarian torsion, colitis Vital Signs Vital Signs: Vital Signs Temperature 98.5 F 11/17/24 17:03 Pulse Rate 85 11/17/24 17:03 Respiratory Rate 18 11/17/24 17:03 Blood Pressure 146/76 H 11/17/24 17:03 Pulse Oximetry 100 11/17/24 17:03 Oxygen Delivery Room Air 11/17/24 17:03 Temperature 98.5 F 11/17/24 17:03 Pulse Rate 85 11/17/24 17:03 Respiratory Rate 18 11/17/24 17:03 Blood Pressure 146/76 H 11/17/24 17:03 Pulse Oximetry 100 11/17/24 17:03 Oxygen Delivery Room Air 11/17/24 17:03 Discharge Plan Discharge Clinical Impression: Pelvic pain Patient Disposition: Home Condition: Stable Instructions: Antibiotic Form, Pelvic Pain (ED) Additional Instructions: You were seen in the ED for pelvic pain. Please use Motrin Tylenol for pain. Use oxycodone for breakthrough pain. Return if you develop severe pain or any new symptoms. Follow-up with your OBGYN. Patient Language: Portuguese Prescriptions: New oxycodone 5 mg tablet 5 mg PO Q4H PRN (Reason: pain) Qty: 10 0RF No Action escitalopram oxalate 5 mg tablet 5 mg PO HS hydroxyzine HCl 25 mg tablet 25 mg PO HS norethindrone ac-eth estradiol 1.5-30 mg-mcg tablet 1 tablet PO Q24H Qty: 84 2RF Rx Instructions: take 1 tablet orally every 24 hours, skip the placebo week vitamin B complex Tablet 1 tablet PO HS ascorbic acid-vitamin E-zinc Tablet 1 tablet PO HS omega-3 fatty acids Capsule 1 cap PO HS ascorbate calcium (vitamin C) 500 mg Capsule 1 mg PO HS ascorbic acid-zinc sulfate 1 tab-cap PO HS ibuprofen 800 mg tablet 800 mg PO TID Qty: 30 0RF acetaminophen 500 mg tablet 1,000 mg PO TID Qty: 60 0RF docusate sodium [Colace] 100 mg capsule 100 mg PO BID Qty: 90 0RF Follow-up/Referrals: PHYSICIAN,PRESSING MACHINE TENDER [Non-Staff, Internal Medicine]
[2024-11-17 17:16] LABS: Hematocrit 38.0 % (37.0-47.0); Hemoglobin 11.9 g/dL (12.0-15.0); Immature Granulocyte Percent A 0.3 % (0-0.5); Lymphocytes Absolute Auto 3.19 K/mm3 (0.9-3.2); Mean Corpuscular HGB Conc 31.3 g/dl (32-36); Mean Corpuscular Hemoglobin 25.7 pg (26-34); Mean Corpuscular Volume 82.1 fl (80-100); Nucleated Red Blood Cells Absolute Auto 0.000 K/mm3 (0.0-0.012); Nucleated Red Blood Cells Perc 0.0 % (0.0-0.2); Platelet Count Result 345 k/mm3 (150-375); Red Blood Count 4.63 M/mm3 (4.2-5.4); White Blood Count 9.5 K/mm3 (4.5-10.0)
[2024-11-17] MEDS: ACETAMINOPHEN 500 MG TABLET 1000 MG PO (17:16)
[2024-11-17] MEDS: KETOROLAC 15 MG/ML VIAL (*BKC) IV PUSH (17:16)
[2024-11-17] MEDS: HYDROmorphone HCL INJ (*CRX) 1 MG/ML SYR 0.5 MG IV PUSH (17:17)
--- OUTSIDE RECORDS SUMMARY | 2024-11-17 17:20 | XMS_ITS | Clinical Summary ---
Author Organization [facility] Address [address] [place] [id number] Care Team Providers Care [employer] Hat Blocker Name Role Phone Tony Sparks MD Primary Care Provider [phone] Tony Sparks MD Unavailable [phone] Allergies Active Allergy Reactions Criticality Noted Date Comments [place] Hives Reaction: Hives, Tramadol Dizziness Low 10/11/2019 [...] (06/13/2020): Added automatically from request for surgery [id number] Pelvic pain in female 06/13/2020 Overview (06/13/2020): Added automatically from request for surgery [id number] Adnexal tenderness 10/11/2019 Anxiety 10/11/2019 Functional cyst [...] on file 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
[2024-11-17 17:23] LABS: Add Urine Microscopic? NO
[2024-11-17 17:24] LABS: Appearance Urine Clear (Clear); Glucose Urine UA Negative (Negative); Leukocyte Esterase Ur Negative LEU/UL (Negative); Nitrate Urine Negative (Negative); Specific Grav Ur 1.015 (1.001-1.035)
[2024-11-17 17:27] LABS: Alanine Aminotransferase 17 U/L (6-35); Albumin Level 4.5 g/dL (3.5-5.1); Alkaline Phosphatase 74 U/L (38-126); Anion Gap 8 mmol/L (4-12); Aspartate Amino Transferase 29 U/L (14-36); Bilirubin,Total 0.2 mg/dL (0.2-1.3); Blood Urea Nitrogen 12 mg/dL (7-17); Calcium 9.8 mg/dL (8.4-10.2); Carbon Dioxide 28 mmol/L (22-30); Chloride 101 mmol/L (98-107); Estimated CRCL calculation 90 ml/min; Estimated Glomerular Filt Rate > 60; Glucose 89 mg/dL (65-110); Lipase 75 U/L (23-300); Potassium 3.6 mmol/L (3.4-5.0); Sodium 137 mmol/L (137-145); Total Protein 8.4 g/dL (6.3-8.2)
[2024-11-17 17:53] VITALS: BP 113/82; PULSE 76; RESP 13; O2SAT 98
== END 2024-11-17 18:53 | disposition home or self-care (01) ==
PROVIDERS: Emergency Provider Emergency Medicine; PCP Nurse Practitioner
DX: R10.2 Pelvic and perineal pain (principal); N80.9 Endometriosis, unspecified; Z87.891 Personal history of nicotine dependence; Z90.710 Acquired absence of both cervix and uterus; Z90.79 Acquired absence of other genital organ(s); Z79.3 Long term (current) use of hormonal contraceptives
CPT/HCPCS: 36415; 74177; 80053; 81003; 81025; 83690; 85025; 96374; 96375; 99284; A9270; J1171; J1885; Q9967

== ENCOUNTER 2025-02-15 13:39 | Emergency (ER) | payer SELFPAY ==
--- NOTE | ~2025-02-15 | XR_ITS ---
Examination: XR chest 2V Clinical History: ELEVATED HR X 1 HOUR AGO Comparison: CT abdomen pelvis 11/17/2024 Technique: PA and Lateral Findings: Cardiomediastinal silhouette normal size and configuration. Lungs clear. No acute bony abnormality. IMPRESSION: 1. No acute cardiopulmonary findings. Reviewed, dictated and finalized at location [facility]
--- NOTE | 2025-02-15 13:42 | ECG_ITS ---
Test Date: 2025-02-15 13:50:19 Measurements Intervals [facility] Rate: 106 P: 0 OK: 0 QRS: 1 QRSD: 103 T: 23 QT: 347 QTc: 462 Interpretive Statements SINUS TACHYCARDIA WITH ATRIAL PREMATURE COMPLEX BASELINE ARTIFACT- I, II, III, AVR, AVL, AVF, V2, V4-V6 ABNORMAL ECG No previous ECG available for comparison Electronically Signed On 02-15-2025 14:22:10 REFRACTORY TECHNICIAN by Darshan Jiang D.O.
[2025-02-15 13:43] VITALS: BP 152/83; PULSE 108; RESP 18; TEMP 37.1; O2SAT 100
[2025-02-15] MEDS: ASPIRIN 81 MG CHEWABLE TABLET 324 MG PO (13:55)
[2025-02-15 14:04] LABS: Hematocrit 37.6 % (37.0-47.0); Hemoglobin 12.2 g/dL (12.0-15.0); Immature Granulocyte Percent A 0.6 % (0-0.5); Lymphocytes Absolute Auto 2.07 K/mm3 (0.9-3.2); Mean Corpuscular HGB Conc 32.4 g/dl (32-36); Mean Corpuscular Hemoglobin 26.4 pg (26-34); Mean Corpuscular Volume 81.4 fl (80-100); Nucleated Red Blood Cells Absolute Auto 0.000 K/mm3 (0.0-0.012); Nucleated Red Blood Cells Perc 0.0 % (0.0-0.2); Platelet Count Result 315 k/mm3 (150-375); Red Blood Count 4.62 M/mm3 (4.2-5.4); White Blood Count 11.5 K/mm3 (4.5-10.0)
[2025-02-15 14:14] LABS: Alanine Aminotransferase 21 U/L (6-35); Albumin Level 4.6 g/dL (3.5-5.1); Alkaline Phosphatase 92 U/L (38-126); Anion Gap 7 mmol/L (4-12); Aspartate Amino Transferase 33 U/L (14-36); Bilirubin,Total 0.4 mg/dL (0.2-1.3); Blood Urea Nitrogen 10 mg/dL (7-17); Calcium 9.9 mg/dL (8.4-10.2); Carbon Dioxide 28 mmol/L (22-30); Chloride 102 mmol/L (98-107); Estimated CRCL calculation 90 ml/min; Estimated Glomerular Filt Rate > 60; Glucose 99 mg/dL (65-110); Lipase 56 U/L (23-300); Potassium 3.9 mmol/L (3.4-5.0); Sodium 137 mmol/L (137-145); Total Protein 8.6 g/dL (6.3-8.2)
[2025-02-15 14:15] LABS: INR 0.9; Prothrombin Time 12.8 Seconds (11.1-14.7)
[2025-02-15 14:16] LABS: Partial Thromboplastin Time 28.5 Seconds (22.3-36.8)
[2025-02-15 14:26] LABS: Troponin I < 0.012 ng/mL (0.000-0.034)
[2025-02-15] MEDS: LACTATED RINGERS 1,000 ML 999 ML IV CONT (14:28)
--- OUTSIDE RECORDS SUMMARY | 2025-02-15 14:55 | XMS_ITS | Clinical Summary ---
Author Organization [facility] Address [address] [place] [address] Care Team Providers Care Door Attendant Name Role Phone Tony Sparks MD Primary Care Provider [phone] Tony Sparks MD Unavailable [phone] Allergies Active Allergy Reactions Criticality Noted Date Comments [place] Hives Reaction: Hives, Tramadol Dizziness Low 10/11/2019 [...] (06/13/2020): Added automatically from request for surgery [id number] Pelvic pain in female 06/13/2020 Overview (06/13/2020): Added automatically from request for surgery [id number] Adnexal tenderness 10/11/2019 Anxiety 10/11/2019 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 Insomnia 10/11/2019 Tobacco dependence syndrome 10/11/2019 Headache 08/05/2017 Encounters Date Type Department Care Team Description 11/25/2024 1:39 PM CDT - 11/25/2024 11:59 PM CDT Hospital Encounter [facility] [address] [place] [id number] Pelvic and perineal pain Discharge Disposition: Discharge to home or self care from Last 3 Months Surgical History Surgery Date Site/Laterality Comments HYSTERECTOMY [...] on file 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 Gender Identity Not on file Sexual Orientation [...] 07/25/2020 10:05 AM CDT Plan of Treatment Health Maintenance Due Date Last Done Comments Breast Cancer Screening-Mammogram 1982 Depression Screening 1982 Hepatitis C Screening 1982 DTaP/Tdap/Td Vaccine (1 - Tdap) 1993 Varicella Vaccines (1 of 2 - 13+ 2-dose series) 12/10/1995 Hepatitis B Screening 2000 Regular Well Visit/Exam 18-64 2000 HPV Vaccines (1 - 3-dose SCD M series) 2009 Covid-19 Vaccine (3 - 2024-2 6 season) 2024 11/02/2020, 10/06/2020 Influenza Vaccine (#1) 2024 Pneumococcal vaccine <65 Aged Out No longer eligible based on patient's age to complete this topic Procedures Procedure Name Priority Date/Time Associated Diagnosis Comments US PELVIS W ENDOVAGINAL Schedule Routine, Read Routine (OP Routine) 11/25/2024 2:09 PM CDT Pelvic and perineal pain from Last 3 Months Results * US Pelvis W Endovaginal (11/25/2024 2:09 PM CDT) Anatomical Region Laterality Modality Pelvis N/A Ultrasound 11/28/2024 4:42 PM CDT Narrative 11/28/2024 4:43 PM CDT EXAM DESCRIPTION: US PELVIS W ENDOVAGINAL REASON FOR STUDY: R10.2 TECHNIQUE: Ultrasound of the pelvic contents was performed with transabdominal and transvaginal transducer. Grayscale and color doppler techniques were utilized. COMPARISON: None FINDINGS: UTERUS: Absent. RIGHT OVARY: Obscured by intervening bowel. LEFT OVARY: Obscured by intervening bowel. PELVIC FLUID: There is no significant free pelvic fluid. IMPRESSION: Previous hysterectomy. The ovaries are not visualized. THIS IS AN ELECTRONICALLY VERIFIED FINAL REPORT 11/28/2024 4:43 PM - Electronically signed by Ralf Ramos M.D. JR: Report ID: [id number] Reading Location: [id number] Procedure Note Ralf Ramos MD - 11/28/2024 EXAM DESCRIPTION: US PELVIS W ENDOVAGINAL REASON FOR STUDY: R10.2 TECHNIQUE: Ultrasound of the pelvic contents was performed with transabdominal and transvaginal transducer. Grayscale and color doppler techniques were utilized. COMPARISON: None FINDINGS: UTERUS: Absent. RIGHT OVARY: Obscured by intervening bowel. LEFT OVARY: Obscured by intervening bowel. PELVIC FLUID: There is no significant free pelvic fluid. IMPRESSION: Previous hysterectomy. The ovaries are not visualized. THIS IS AN ELECTRONICALLY VERIFIED FINAL REPORT 11/28/2024 4:43 PM - Electronically signed by Ralf Ramos M.D. JR: Report ID: [id number] Reading Location: [id number] us Provider Transcribed Order IMG US PROCEDURES Fin al Result from Last 3 Months Insurance [employer] PRF P[place] [employer] [facility] [place] [address] Care Teams Door Attendant Relationship Specialty Start Date End Date Tony Sparks MD PCP - General Internal Medicine 10/11/19 Tony Sparks MD Referring Physician Internal Medicine 10/11/19
--- OUTSIDE RECORDS SUMMARY | 2025-02-15 14:55 | XMS_ITS | Data Portability ---
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 She reports pain swelling since then. It is gotten slightly better, although she still has pain with walking. She has been using a sleeve which has not been helping. She denies any previous injury. She currently rates her pain as 5/10. She is currently on spring break. Review of systems per patient questionnaire Physical exam: She has tenderness palpation the lateral ligaments and also over the 5th metatarsal. He comes in walking without difficulty, wearing cam as shoes. She is sensation intact to light touch, 2+ DP pulse. No pain with ankle dorsi or plantar flexion, circumduction. X-rays of the foot and ankle reviewed, demonstrating no acute bony abnormality We will continue conservative management. We will send her to physical therapy and give her a course of meloxicam. We will see her back in 4-6 weeks if no improvement. We discussed that given her injury happened 2 months ago, we would not immobilize her in a boot, instead she should just wear supportive shoes such as sneakers. She is in agreement with plan. Not available 06/08/2023 16:05:53 07/20/2023 07/20/2023 42-year-old female presents for follow-up of her right ankle. She reports persistent pain since her last visit, getting worse. She has been doing physical therapy which has not been helping. She has also been taking meloxicam and wearing a soft ankle brace. None of the side of the knee and difference. She currently rates her pain as 5/10. It is located over the lateral ankle and lateral border of the foot. She has tenderness to palpation over the ATFL and also over the 5th metatarsal. No tenderness over the malleoli. he has good motion of her ankle. Neurovascular intact. she has had no improvement with conservative measures so far. She states that she wants to get a MRI based on the recommendation of her physical therapist. We will order the MRI of the ankle and foot to look for any stress fracture of the 5th metatarsal and to evaluate the lateral ligaments. We will see her back after the scan. We discussed that for an ankle sprain, which is a form of ligament tear, we would continue conservative management and rehab. She is in agreement with the plan. Not available 07/20/2023 12:29:04 07/29/2023 07/29/2023 42-year-old female presents for follow-up of her right foot and ankle. She reports persistent pain in the foot, rated as 7/10. She says that the location moves around the foot and ankle, and is not limited to just 1 place. She has been taking a course of Tylenol ibuprofen as well as prednisone from her PCP. She is also wearing a lace-up ankle brace. None of these have helped. She got an MRI last time was here to review the results. She is in the ankle brace, has tenderness over the lateral ankle and ATFL. Pain with the motion of the ankle. She is able to weight bear and ambulate. MRI was reviewed, demonstrating no fracture, ATFL sprain, tendinitis, no fracture At this point, she continues have generalized ankle and foot pain. The MRI showed some tendinitis and the ATFL sprain but no other obvious structural abnormalities that would be surgical. I would recommend a referral to Dr. Burns our grader operator to see if he has any other thoughts some possible treatments. We will also place her into a boot for immobilization. She may follow-up with us as needed after she sees Dr. Burns. Not available 07/29/2023 10:13:53 Plan of Treatment Reminders Order Date Submit Date Provider Last Modified By Organization Details Last Modified Time Details Appointments None recorded. Lab None recorded. Referral grader operator referral - Please call patient for an appointmen t, she would like to be seen as soon as possible. 2023 024 Dar Burns DPM, [address] [facility], [address], [place], [address], 17:15:37 physical therapist referral - Please schedule pt for R ankle. Pt is W/C 2023 [facility], [address] [facility], [place], [address], 05:09:24 Procedures None recorded. Surgeries None recorded. Imaging MRI, ankle + foot, w/o contrast - Please contact pt to schedule apt. Thanks 2023 024 [facility] [[email or web address] ([facility]), [address] [facility], [place], [address], 4 14:00:57 Medication Orders Mobic 15 mg tablet 2023 024 [email or web address] [id number], [address] , [place], [address], 4 16:33:55 escitalopr am 5 mg tablet 2022 023 [email or web address] [id number], [address], [place], [address], 4 19:18:17 alprazolam 0.5 mg tablet 2022 023 [id number], [address], [place], [address], 3 12:25:05 Patient TargetsNo targets recorded. Patient InstructionsNo instructions recorded. Reason for Referral Physical Therapist Referral for Pain of right ankle joint R ankle Please schedule pt for R ankle. Pt is W/C Referring Physician: Vijay James, Orthopedic Surgery, Encounter Date: 06/08/2023 Metal Burrer Referral for Pain of right ankle joint Please call patient for an appointment, she would like to be seen as soon as possible. Referring Physician: Vijay James, Orthopedic Surgery, Encounter Date: 07/29/2023 Results Created Date Observation Date Name Description Value Unit Range Abnormal Flag Note LastModifiedBy Organization Detail LastModifiedTime 04/10/19 24 04/10/2023 XR, foot No observ ation record ed. [email or web address] [facility] [address] [place], [address], 04/13/2023 13:57:05 04/10/19 24 04/10/2023 XR, ankle No observ ation record ed. [email or web address] [facility] [address] [place], [address], 04/13/2023 13:57:26 07/27/19 24 07/24/2023 MRI, ankle , w/o contr ast No observ ation record ed. [email or web address] Not Available 07/14 13:27:01 Result Notes None recorded. Problems Name Problem SNOMED Code Status Onset Date Resolution Date Notes Provider Name and Address Organization Details Recorded Time Functiona l cyst of ovary 713480820 Active Not Available [facility] 3 22:14:22 Insomnia 988503849 Active Not Available [facility] 3 22:14:22 Adnexal tendernes s 422249510 Active Not Available [facility] 3 22:14:23 Anxiety 39702145 Active Not Available [facility] 3 22:14:23 Dysuria 24268283 Completed Not Available [facility] 3 07:33:48 Cough 60572757 Completed Not Available [facility] 3 07:33:48 Rhinitis 76167321 Completed Not Available [facility] 3 07:33:48 Tobacco dependenc e syndrome 27367352 Active Not Available [facility] 3 22:14:23 Headache 45163520 Active 2017 Not Available [facility] 3 22:14:22 Upper respirato ry infection 71647870 Active 2022 Not Available [facility] 3 22:14:23 Pain of bilateral hip joints 20268488985 942693 Active 2022 Not Available [facility] 3 22:14:22 Pain of hip region 78284778 Active 2022 Not Available [facility] 3 22:14:23 Anxiety disorder 108041708 Active 2022 JASMEET Calvert [address] [facility], [address], [address] , [employer] [facility] 3 11:57:36 COVID-19 284705309 Active 2022 [facility] MD [address], [address] , [employer] 3 15:52:49 Acute sinusitis 43084380 Active 2023 [facility] MD [address], [address] , [employer] 4 18:31:32 Injury of right ankle 92925239367 010838 Active 2023 [facility] MD [address], [address] , [employer] 4 18:21:09 Pain of right ankle joint 09006769554 448794 Active 2023 MARCELO Scales [facility], [employer] [facility] 4 12:31:09 Problem Notes None recorded. Procedures Surgical History Date Name Laterality Status Provider Name and Address Organization Details Recorded Time 12/05/19 Date of Last Pap Smear completed Not Available [facility] 05/14/2022 07:27:59 Hysterectomy completed Not Available [facility] 05/14/2022 07:28:01 Tonsillectomy completed Not Available [facility] 05/14/2022 07:28:01 Imaging Results None recorded. Procedure Notes None recorded. Medical Equipment None Reported. Allergies Allergen ID Allergen Name Allergen Category Reaction Reaction Severity Criticality Documentation Date Start Date Code Code System Note Provider Name and Address Organization Details Recorded Time 14498 tramadol medicatio n dizziness Not available Not available 05/14/2022 46232 RxNorm Not Available [facility] 3 07:42:36 59988 strawberr y allergeni c extract food Not available Not available Not available 05/14/2022 59556 4 RxNorm Not Available [facility] 3 07:42:36 Medications Name Sig Start Date Stop Date Status Note LastModified by Organization Details LastModified Time cyclobenzap rine 10 mg tablet TAKE 1/2 TO 1 TABLET 2 TIMES A DAY 06/07 completed Not Available Not Available Not Available amoxicillin 500 mg capsule TAKE 1 CAPSULE BY MOUTH THREE TIMES A DAY FOR 10 DAYS WITH FOOD 02/23 completed Not Available Not Available Not Available methocarbam ol 500 mg tablet 08/05 completed Not Available Not Available Not Available promethazin e-DM 6.25 mg-15 mg/5 mL oral syrup TAKE 5 ML BY MOUTH EVERY 4-6 HOURS NEEDED FOR COUGH 02/23 completed Not Available Not Available Not Available trazodone 50 mg tablet TAKE 1 TABLET BY MOUTH EVERY DAY active Not Available Not Available No t Available azithromyci n 250 mg tablet TAKE 2 TABLETS BY MOUTH TODAY, THEN TAKE 1 TABLET DAILY FOR 4 DAYS 02/23 completed Not Available Not Available Not Available ibuprofen 800 mg tablet TAKE 1 TABLET BY MOUTH EVERY EIGHT HOURS NEEDED FOR PAIN TAKE WITH A FULL STOMACH. 06/07 completed Not Available Not Available Not Available benzonatate 200 mg capsule Take 1 capsule 3 times a day by oral route for 7 days. active Not Available Not Available No t Available hydrocodone 5 mg-acetamin ophen 325 mg tablet TK 1 T PO Q 6 H PRN P 11/01 completed Not Available Not Available Not Available meloxicam 15 mg tablet TAKE 1 TABLET BY MOUTH EVERY DAY 2023 active Not Available Not Available Not Avai lable Medrol (Chuy) 4 mg tablets in a dose pack take decreasin g doses as directed 07/26 completed Not Available Not Available Not Available prednisone 20 mg tablet TAKE 2 TABLET BY MOUTH ONCE DAILY FOR 5 DAYS. TAKE WITH FOOD. 2023 active Not Available Not Available Not Avai lable penicillin V potassium 500 mg tablet TAKE 1 TABLET BY MOUTH EVERY 12 HOURS FOR 10 DAYS 02/23 completed Not Available Not Available Not Available Flonase 50 mcg/actuati on nasal spray,suspe nsion Inhale 2 sprays every day by intranasa l route in the evening. 08/05 completed Not Available Not Available Not Available topiramate 25 mg tablet TAKE 1 TABLET BY MOUTH TWICE A DAY 02/22 completed Not Available Not Available Not Available acetaminoph en 300 mg-codeine 30 mg tablet active Not Available Not Available Not Available ciprofloxac in 500 mg tablet TAKE 1 TABLET BY MOUTH TWICE DAILY FOR 5 DAYS 06/01 completed Not Available Not Available Not Available sulfamethox azole 800 mg-trimetho prim 160 mg tablet TK 1 T PO BID 01/17 completed Not Available Not Available Not Available meloxicam 7.5 mg tablet TAKE 1 TABLET BY MOUTH EVERY DAY active Not Available Not Available No t Available alprazolam 0.5 mg tablet TAKE 1 TABLET BY MOUTH TWICE A DAY NEEDED active Not Available Not Available No t Available Guaiatussin AC 10 mg-100 mg/5 mL oral liquid active Not Available Not Available Not Available amoxicillin 875 mg tablet TAKE 1 TABLET BY MOUTH EVERY 12 HOURS FOR 7 DAYS 06/07 completed Not Available Not Available Not Available alprazolam 0.25 mg tablet TAKE 1 TABLET TWICE A DAY BY ORAL ROUTE NEEDED. 06/07 completed Not Available Not Available Not Available baclofen 10 mg tablet TAKE 1 TABLET BY MOUTH THREE TIMES A DAY NEEDED FOR MUSCLE SPASMS 06/07 completed Not Available Not Available Not Available benzonatate 100 mg capsule active Not Available Not Available Not Available triamcinolo ne acetonide 0.1 % topical ointment ISAAC EXT AA BID 09/18 completed Not Available Not Available Not Available buspirone 10 mg tablet TAKE 1 TABLET BY MOUTH THREE TIMES A DAY 06/07 completed Not Available Not Available Not Available lidocaine 5 % topical patch APPLY 1 PATCH BY TOPICAL ROUTE ONCE DAILY (MAY WEAR UP TO 12HOURS.) 06/07 completed Not Available Not Available Not Available montelukast 10 mg tablet TAKE 1 TABLET BY MOUTH EVERY DAY 02/22 completed Not Available Not Available Not Available hydrocodone 5 mg-acetamin ophen 500 mg tablet active Not Available Not Available No t Available ibuprofen 600 mg tablet TK 1 T PO Q 4 TO 6 H PRN P 08/07 completed Not Available Not Available Not Available albuterol sulfate HFA 90 mcg/actuati on aerosol inhaler INHALE 1 TO 2 PUFFS PO EVERY 4-6 HOURS PRN 06/01 completed Not Available Not Available Not Available Zoloft 25 mg tablet Take 1 tablet every other day by oral route. 06/17 completed Not Available Not Available Not Available ondansetron 4 mg disintegrat ing tablet active Not Available Not Available N ot Available sertraline 50 mg tablet Take 1 tablet every day by oral route. 04/08 completed Not Available Not Available Not Available naproxen 500 mg tablet TK 1 T PO BID WITH FOOD 09/18 completed Not Available Not Available Not Available amoxicillin 875 mg-potassiu m clavulanate 125 mg tablet TAKE 1 TABLET BY MOUTH EVERY 12 HOURS 02/23 completed Not Available Not Available Not Available nabumetone 500 mg tablet 08/05 completed Not Available Not Available Not Available cyclobenzap rine 5 mg tablet TK 1 T PO HS PRF MUSCLE SPASM 09/18 completed Not Available Not Available Not Available escitalopra m 5 mg tablet TAKE 1 TABLET BY MOUTH EVERY DAY active Not Available Not Available No t Available nitrofurant oin monohydrate /macrocryst als 100 mg capsule TAKE 1 CAPSULE BY MOUTH EVERY 12 HOURS FOR 3 DAYS *TAKE WITH FOOD* 02/23 completed Not Available Not Available Not Available Tylenol 06/01 completed Not Available Not Available Not Available diclofenac 1 % topical gel APPLY 2 GRAMS TO THE AFFECTED AREA(S) BY TOPICAL ROUTE 4 TIMES PER DAY 06/07 completed Not Available Not Available Not Available Amethia 0.15 mg-30 mcg (84)/10 mcg(7) tablets,3 month dose pack Take 1 tablet every day by oral route. 05/10 completed Not Available Not Available Not Available Paxlovid 300 mg (150 mg x 2)-100 mg tablets in a dose pack TAKE DIRECTED 07/26 completed Not Available Not Available Not Available Vitals Date Recorded Body height Body mass index (BMI) Body weight Heart rate Oxygen saturation Systolic And Diastolic Provider Name and Address Organization Details Last Updated DateTime 4 170.18 cm 28.5 kg/m2 94120.8 1 g 87 /min 96 % 120/78 mm[Hg] Tahira Molina RN [facility] 4 16:34:26 Date Recorded Body height Body mass index (BMI) Body weight Pain severity - 0-10 verbal numeric rating [Score] - Reported Provider Name and Address Organization Details Last Updated DateTime 06/08/2023 170.18 cm 28.2 kg/m2 60002.63 g 5 Batsheva Fragoso [facility] [employer] [facility] 06/08/2023 12:29:11 Date Recorded Body height Body mass index (BMI) Body weight Pain severity - 0-10 verbal numeric rating [Score] - Reported Provider Name and Address Organization Details Last Updated DateTime 07/20/2023 170.18 cm 28.2 kg/m2 66626.63 g 5 Batsheva Fragoso Akash [employer] [facility] 07/20/2023 09:44:47 Date Recorded Body height Body mass index (BMI) Body weight Pain severity - 0-10 verbal numeric rating [Score] - Reported Provider Name and Address Organization Details Last Updated DateTime 07/29/2023 170.18 cm 28.2 kg/m2 27360.63 g 7 Batsheva Fragoso Akash [employer] [facility] 07/29/2023 08:55:09 Date Recorded Body height Body mass index (BMI) Body weight Body temperature Oxygen saturation Heart rate Systolic And Diastolic Provider Name and Address Organization Details Last Updated DateTime 3 170.18 cm 27.9 kg/m2 96549.4 4 g 97.9 [degF] 98 % 94 /min 134/74 mm[Hg] Tamiko Mora RN [facility] 3 11:50:04 Social History Question Answer Notes LastModified by Organizat ion Details LastModified Time Tobacco Smoking Status Current Every Day Smoker quit 2014; restarted Not Available [facility] 05/14/2022 07:27:48 Do You Have An Advance Directive? No [id number] Information not available 05/14/2022 What Is Your Level Of Caffeine Consumption? Heavy MIGRATION.18309 [id number] Information not available 05/14/2022 How Much Tobacco Do You Chew? None MIGRATION.38882 [id number] Information not available 05/14/2022 In The 14 Days Before Symptom Onset, Have You Had Close Contact With A Laboratory-confi rmed COVID-19 While That Case Was Ill? No MIGRATION.28084 [id number] Information not available 05/14/2022 In The 14 Days Before Symptom Onset, Have You Had Close Contact With A Person Who Is Under Investigation For COVID-19 While That Person Was Ill? No MIGRATION.48334 [id number] Information not available 05/14/2022 What Type Of Diet Are You Following? REGULAR MIGRATION.22954 10243 Information not available 05/14/2022 Which Illicit Or Recreational Drugs Have You Used? None MIGRATION.42099 20989 Information not available 05/14/2022 Are There Any Guns Present In Your Home? Yes MIGRATION.27626 [id number] Information not available 05/14/2022 Are You Following A Low Salt Diet? No MIGRATION.52079 12212 Information not available 05/14/2022 What Was The Date Of Your Most Recent Tobacco Screening? 06/01/2020 MIGRATION.62294 14280 Information not available 05/14/2022 Have You Ever Been Counseled For Unhealthy Alcohol Use? No MIGRATION.68976 91907 Information not available 05/14/2022 At What Age Did You Start Smoking Tobacco? 20 MIGRATION.56068 60769 Information not available 05/14/2022 How Much Tobacco Do You Smoke? 0.25 PPD MIGRATION.98971 10575 Information not available 05/14/2022 Do You Use Sunscreen Routinely? Yes MIGRATION.87122 65370 Information not available 05/14/2022 Has Tobacco Cessation Counseling Been Provided? No MIGRATION.67102 26067 Information not available 05/14/2022 Do You Have Any Dietary Restrictions? Yes No Strawberries MIGRATION.10204 81352 Information not available 05/14/2022 Sex: Unknown Functional Status Question Answer Note LastModified by Organizat ion Details LastModified Time Do you use any illicit or recreational drugs? No MIGRATION.056248 5720 Information not available 05/14/2022 Do you or have you ever used any other forms of tobacco or nicotine? No MIGRATION.709898 7931 Information not available 05/14/2022 What is your level of alcohol consumption? Occasional MIGRATION.672681 0133 Information not available 05/14/2022 Do you or have you ever used smokeless tobacco? 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 Never used electronic cigarettes MIGRATION.042995 2506 Information not available 05/14/2022 What is your exercise level? Moderate MIGRATION.380075 1655 Information not available 05/14/2022 Mental Status None recorded. Family History Relationship Description Onset Age of this Age Resolved Age Notes LastModified by Organization Details LastModified Time Father Diabetes mellitus [id number] Not available 05/14/2022 07:28:03 Father Scoliosis deformity of spine [email or web address] Not available 07/28 08:53:42 Unspecified Relation Malignant neoplasm of breast matern al cousin [email or web address] Not available 07/29/2023 08:53:42 Unspecified Relation Family history of malignant neoplasm [email or web address] Not available 07/28 08:53:42 Mother Hypothyroidi sm [email or web address] Not available 07/28 08:53:42 Maternal Grandmother Malignant neoplasm of breast [email or web address] Not available 07/28 08:53:42 Paternal Aunt Malignant neoplasm of cervix uteri [email or web address] Not available 08:53:42 Paternal Grandmother Diabetes mellitus [id number] Not available 05/14/2022 07:28:03 Notes:paternal cousin - cx c ancer Medical History Condition Response NERVE DISEASE N BLINDNESS N RHEUMATIC FEVER N KIDNEY STONES N BLADDER PROBLEMS N MRSA N OTHER # 1 Y POLIO N LUNG DISEASE/DISORDER N RADIATION / CHEMOTHERAPY N COPD N Other # 2 N BLOOD DISEASES N SURGERY N EAR OR HEARING PROBLEMS N MUMPS N DEPRESSION (INCLUDING POST ) N BOWEL PROBLEMS N STROKE/TIA N ULCERS N BENIGN PROSTATIC HYPERPLASIA N MEASLES N MYOCARDIAL INFARCTION N OBESITY N GERD/NAUSEA N ANEURYSM N URINARY/BLADDER/KIDNEY PROBLEMS N CORONARY ARTERY DISEASE (CAD) N ADDICTION CONCERNS N Impotence N ENDOMETRIOSIS N USE OF BLOOD THINNERS N SKIN PROBLEMS N GASTROINTESTINAL DISORDER N PERIPHERAL VASCULAR DISEASE N MUSCLE,JOINT OR BONE PROBLEMS N GASTROINTESTINAL BLEEDING N BLOOD CLOTS N ASTHMA N CATARACTS N ERECTILE DYSFUNCTION N VARICOSITIES N GI PROBLEMS N Low Testosterone N INFERTILITY N AIDS/HIV N CHEMOTHERAPY / RADIATION N LIVER DISEASE N MALE HYPOGONADISM N HYPERTENSION N Deficiency N ANXIETY DISORDER Y BLOOD TRANSFUSION N ANEMIA/BLOOD DISORDER N CHRONIC EAR INFECTIONS N BRONCHITIS N TUBERCULOSIS N GLAUCOMA N FOOT PROBLEM N DIVERTICULITIS N SLEEP APNEA N CHICKENPOX N INFECTIOUS DISEASE N PROSTATE N HEART ARRHYTHMIA N INSOMNIA Y HIGH CHOLESTEROL / HYPERLIPIDEMIA N HYPERTHYROIDISM N EYE PROBLEMS N NEUROLOGICAL PROBLEMS N EDEMA N CHRONIC PAIN SYNDROME N HYPOTHYROIDISM N CONSTIPATION N CAROTID BLOCKAGE N BACK / NECK PROBLEMS N ATHEROSCLEROSIS N BREAST PROBLEMS N DIALYSIS N ECZEMA N OSTEOPOROSIS N ARTHRITIS N APPENDICITIS N DIABETES, TYPE N BAD TEETH N ENT N HEARTBURN / REFLUX N AUTISM SPECTRUM DISORDER (ASD) N HEPATITIS / LIVER DISEASE N GOUT N SLEEP DISORDER N ALZHEIMER'S DISEASE N Brain Problems N HERPES N DEMENTIA N SEIZURES/EPILEPSY N HEADACHES/MIGRAINES Y VASCULAR DISEASE N PACEMAKER N Blood Disorder N DIZZINESS N KIDNEY DISEASE N HEART DISEASE/HEART PROBLEMS N MULTIPLE SCLEROSIS N CARDIAC ARRHYTHMIA N CANCER: SPECIFY N Gall Stones N ATRIAL FIBRILLATION N PULMONARY EMBOLISM N AUTOIMMUNE DISEASE N Gynecological History Statement/Question Response Abnormal Pap N Date of LMP Sexually Active? Y STIs/STDs N Date of Last Pap Smear 12/05/2019 Current Control Method Hysterectom y Breast Problems yes Discharge no Obstetrics History GPAL:G 2 P 2 0 0 2 Type Value Full Term 2 Living 2 Total 2 Past Encounters Encounter ID Performer Location Encounter Start Date Encounter Closed Date Diagnosis/Indication Diagnosis SNOMED-CT Code Diagnosis ICD10 Code Diagnosis IMO Codes Diagnosis Note [id number] Tony Sparks MD [facility] [address] [facility] [address] [place] [address] 06/01/2020 00:00:00 06/01/2020 17:05:46 [id number] ADRIAN Ryan [facility] [address] [place] [address] 10/02/2021 00:00:00 10/02/2021 10:11:26 [id number] [facility] MD [facility] Primary Care [address] [place] [address] 01/21/2022 00:00:00 01/21/2022 11:45:51 [id number] ADRIAN Ryan [facility] Primary [address] [place] [address] 09/12/2022 12:15:08 09/12/2022 13:57:15 Pain of bilateral hip joints 6942473680 [id number] M25.551 [id number] [facility] [address] [place] [address] 10/24/2022 12:22:07 10/24/2022 12:55:35 Pain of bilateral hip joints [id number] M25.551 Chronic, minimal improvemen t with nsaids.Xra y hips/pelvi s (09/12/22) unremarkab le.Continu e with oral and topical nsaids as directed. Will refer to PT for further evaluation /tx. [id number] Blessing House MD [facility] [place] [address] [place] [address] 02/23/2023 11:42:15 02/23/2023 12:41:21 Anxiety disorder [id number] F41.9 Anxiety increased due to situationa l stressors. Discussed adding daily maintenanc e medication , pt. is agreeable, will do trial of lexapro.Wi ll increase alprazolam 0.5mg BID PRN, discussed hopefully she will be able to continue using sparingly with the addition of the lexapro.F/ u in 3-4 weeks. [id number] Blessing House MD [facility] Primary [facility] [place] [address] [place] [address] 04/14/2023 16:28:19 04/14/2023 16:59:13 Injury of right ankle [id number] S99.911A sustained soft tissue damage/spr ain right ankle due to injury at workxrays negative for fracturere st, elevate, ice, avoid weight bearing as much as possibleou t of work until Thursday04/20/23 to avoid weight bearingaft er return to work, try to sit and elevate as much as possible during the day and ice at end of day for the next 2 weekscall if no improvemen t by Thursday for orthopedic referral [id number] Vijay James MD [facility]_[address] [address] 06/08/2023 12:05:52 06/08/2023 13:03:58 Pain of right ankle joint [id number] M25.440 [id number] Vijay James MD [address] [address] 07/20/2023 09:41:41 07/20/2023 10:20:42 Pain of right ankle joint [id number] M25.223 [id number] Vijay James MD [facility] [address] [facility] [facility] [address] [place] [address] 07/29/2023 08:52:47 07/29/2023 09:28:41 Pain of right ankle joint [id number] M25.571 Health Concerns Section Related Observation LastModified by Organization Detai ls LastModified Time None Recorded Concern Status LastModified by Organization Details LastModified Time None Recorded Advance Directives Directive N: Payers Insurance Date Sequence Insurance Name Policy Number Policy Doan Covered Member ID Doan Member ID Guarantor Name 07/28/2023 [facility] [id number] Caitlin Cerda 07/28/2023 [employer] Caitlin Cerda 07/29/2023 1 [facility] [id number] Yair Cerda [id number] Caitlin Cerda 07/28/2023 2 [place] [employer] Caitlin Cerda [id number] Caitlin Cerda Notes Date Note Type Note Provider Name and Address Organization Details Recorded Time 02/23/2023 text/html Pt. here to f/u on anxiety. She states with her job she has noticed increased stress and would like to discuss medication changes. She was on buspirone previously but it made her sick (shaky, diarrhea). She tried for 4 months but it did not get better. She went to the ER over the summer for a panic attack and states she has had a couple since them. She is currently taking alprazolam 0.25mg as needed. She is doing yoga and meditation to try and help as well. JASMEET Calvert [address], [place], [address], [employer] 02/23/2023 12:27:39 04/14/2023 text/html ROS as noted in the HPI Last Thursday at work a student was pushing back in chair and the chair and child fell back on her right ankle. She had immediate swelling and pain, bruising was noted the next day. She called nurses line and they recommended ice, elevating, ibuprofen but she was not given instructions to avoid weightbearing. Ankle got more painful the next day and and has not improved since. She called nurse line again on Thursday and was directed to go to after completing her workday on Thursday. Was seen in on Thursday afternoon, swelling was noted on exam. Xray done 04/10/23, no fracture. She was told to return to work tomorrow (was off Thu and ) was given muscle relaxer (causes drowsiness) and was told to rest/elevate, ice. 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 She has pain with weightbearing from the pad of her foot down the arch to the heel. Blessing House MD [address], [place], [address], [employer] 04/14/2023 18:23:49 OBGyn Episode No OBEpisode recorded.
[2025-02-15 15:23] VITALS: BP 123/64; PULSE 95; RESP 18; O2SAT 99
--- OUTSIDE RECORDS SUMMARY | 2025-02-15 16:00 | XMS_ITS | Clinical Summary ---
Author Organization [facility] Address [address] [place] [address] Care Team Providers Care Plate Molder Name Role Phone Tony Sparks MD Primary Care Provider [phone] Tony Sparks MD Unavailable [phone] Allergies Active Allergy Reactions Criticality Noted Date Comments Lyerly Hives Reaction: Hives, Tramadol Dizziness Low 10/11/2019 [...] (06/13/2020): Added automatically from request for surgery [id number] Pelvic pain in female 06/13/2020 Overview (06/13/2020): Added automatically from request for surgery [id number] Adnexal tenderness 10/11/2019 Anxiety 10/11/2019 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 Insomnia 10/11/2019 Tobacco dependence syndrome 10/11/2019 Headache 08/05/2017 Encounters Date Type Department Care Team Description 11/25/2024 1:39 PM CDT - 11/25/2024 11:59 PM CDT Hospital Encounter [facility] [address] [place] [address] Pelvic and perineal pain Discharge Disposition: Discharge [...] on file Legal 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 JR: Report ID: [id number] Reading Location: [id number] Procedure Note Ralf Ramos MD - 11/28/2024 [...] by Ralf Ramos M.D. JR: Report ID: [id number] Reading Location: [id number] us Provider Transcribed Order IMG US PROCEDURES Fin al Result from Last 3 Months Insurance IDPA CHOICE PRF PPO [facility] CHOICE PLUS Care Teams Plate Molder Relationship Specialty Start Date End Date Tony Sparks MD PCP - General Internal Medicine 10/11/19 Tony Sparks MD Referring Physician Internal Medicine 10/11/19
--- NOTE | 2025-02-15 16:18 | ED.ARRPALP ---
HPI - Arrhythmia/Palpitations General Chief Complaint: Arrhythmia/Palpitations Stated Complaint: elevated pulse, left arm numbness/tingling Time Seen by Provider: 02/15/25 13:41 History of Present Illness HPI narrative: Patient started having palpitations earlier today, has had this happen in the past, also with some light redness, chest tightness. She does have history of anxiety and panic attacks but states that this feels different, and she does have an exam today scheduled for 4:00 p.m. but states that she is not anxious about this. Related Data Home Medications ?Medication ?Instructions ?Recorded ?Confirmed ?Last Taken ?Type ascorbate calcium (vitamin C) 500 1 mg PO HS 12/21/23 02/15/25 12/24/23 History mg capsule ascorbic acid-zinc sulfate 1 tab-cap PO HS 12/21/23 02/15/25 12/24/23 History omega-3 fatty acids 1 cap PO HS 12/21/23 02/15/25 12/24/23 History vitamin B complex 1 tablet PO HS 12/21/23 02/15/25 12/24/23 History Allergies Allergy/AdvReac Type Severity Reaction Status Date / Time strawberry Allergy Unknown Hives Verified 02/15/25 12:37 trazodone AdvReac Intermediate Nausea Verified 02/15/25 12:37 Review of Systems Review of Systems: All systems reviewed & are unremarkable except as noted in HPI and below PMFSH Past Medical History Medical History Endometriosis determined by laparoscopy Surgical History Surgical History S/P laparoscopic surgery History of ankle surgery 12/31/23 History of tonsillectomy History of hysterectomy History of laparoscopy (12/28/23) Laparoscopic left salpingectomy (removal of hydrosalpinx) Family History Family History Father Diabetes mellitus Mother Family history of thyroid problem Social History Social History Years smoked: 24 Smoking status: Former smoker Tobacco type: cigarettes Second hand tobacco smoke exposure: No Smoking end date: 12/14/22 Alcohol intake: never Substance use: never Substance use type: does not use Last use: 2022 Lack of Transportation: No Lack of Food: Never True Current Housing: I Have Housing Concerned About Future Housing: No Difficulty Paying Gas/Electric Bills: No Difficulty Paying for Meds: No Currently Unemployed: No Education: High School Diploma/GED Difficulty w/ Childcare or Family Care: No Living arrangements: with family Occupation/Education: occupation Gender identity (if verbalized by the patient): Female Sexual Orientation (if Verbalized by the Patient): Straight or Heterosexual Spiritual care concerns: No Exam Narrative: EXAMINATION OF ORGAN SYSTEMS/BODY AREAS: Constitutional: Vital signs per nursing GENERAL:[No acute distress, non-toxic appearing.] HEAD: Normal with no signs of head trauma. EYES: EOMI, conjunctiva normal ENT: Hearing grossly intact LUNGS: Nonlabored breathing. HEART: Minimally elevated heart rate ABD: [Soft], [nontender to palpation] EXT: Normal range of motion SKIN: [No rashes or lesions.] NEURO: [Alert. No gross focal sensory or strength deficits.] Speak with clear speech, ambulating with normal steady gait, no facial droop PSYCH: Normal affect Course Vital Signs Vital signs: Vital Signs Temperature 98.7 F 02/15/25 13:43 Pulse Rate 108 H 02/15/25 13:43 Respiratory Rate 18 02/15/25 13:43 Blood Pressure 152/83 H 02/15/25 13:43 Pulse Oximetry 100 02/15/25 13:43 Oxygen Delivery Room Air 02/15/25 13:43 Temperature 98.7 F 02/15/25 13:43 Pulse Rate 95 02/15/25 15:23 Respiratory Rate 18 02/15/25 15:23 Blood Pressure 123/64 02/15/25 15:23 Pulse Oximetry 99 02/15/25 15:23 Oxygen Delivery Room Air 02/15/25 13:43 [facility] MDM Narrative Medical decision making narrative: Patient with history of anxiety/panic attacks presenting here with palpitations, chest tightness, slight nausea. On exam patient is slightly tachycardic but otherwise well-appearing, normal neurologic exam. I will obtain EKG and chest xray to rule out arrhythmia/ischemia, pneumothorax, or other cause of chest discomfort/shortness of breath. She she will be given IV fluids. Chest x-ray on my independent interpretation does not show any acute abnormality, no pneumothorax or consolidation. EKG - 12-Lead: Performed at 1350. Interpreted by me. [Sinus rhythm]. Rate 106. [Normal] axis. AL-interval [normal]. QRS duration [normal]. QTc [normal]. [No ST segment elevation or depression]. [T-wave normal]. Impression: No EKG evidence of acute ischemia or dysrhythmia. On reevaluation patient is feeling better, resting comfortably, vital signs now stable. I do feel patient is stable for discharge home at this time with followup to their doctor, and return here if symptoms return or worsen. Agreeable to outpatient management. Differential Diagnosis Differential Diagnosis: CVA very unlikely given NIH stroke scale 0 here, also considered anxiety, dehydration, very unlikely PE without DVT symptoms or risk factors Lab Data 02/15/25 13:57 02/15/25 13:57 Labs: Lab Results 02/15/25 Range/Units 13:57 WBC 11.5 H (4.5-10.0) K/mm3 RBC 4.62 (4.2-5.4) M/mm3 Hgb 12.2 (12.0-15.0) g/dL Hct 37.6 (37.0-47.0) % MCV 81.4 (80-100) fl MCH 26.4 (26-34) pg MCHC 32.4 (32-36) g/dl RDW 13.1 (11.5-14.5) % Plt Count 315 (150-375) k/mm3 MPV 9.0 (7.4-10.4) fl Immature Gran % (Auto) 0.6 H (0-0.5) % Neut % (Auto) 73.8 H (45.5-73.1) % Lymph % (Auto) 18.1 L (18.3-44.2) % Fallon % (Auto) 6.3 (2.6-8.5) % Eos % (Auto) 0.9 (0-4.4) % Baso % (Auto) 0.3 (0.2-1.2) % Lymph # (Auto) 2.07 (0.9-3.2) K/mm3 Fallon # (Auto) 0.7 H (0.1-0.6) K/mm3 Eos # (Auto) 0.1 (0-0.3) K/mm3 Baso # (Auto) 0.0 (0.0-0.1) K/mm3 Abs Immat Gran (auto) 0.07 H (0.00-0.031) K/mm3 Absolute Neuts (auto) 8.5 H (1.3-6.7) K/mm3 Absolute Nucleated RBC 0.000 (0.0-0.012) K/mm3 Nucleated RBC % 0.0 (0.0-0.2) % PT 12.8 (11.1-14.7) Seconds INR 0.9 APTT 28.5 (22.3-36.8) Seconds Sodium 137 (137-145) mmol/L Potassium 3.9 (3.4-5.0) mmol/L Chloride 102 (98-107) mmol/L Carbon Dioxide 28 (22-30) mmol/L Anion Gap 7 (4-12) mmol/L BUN 10 (7-17) mg/dL Creatinine 0.85 (0.7-1.0) mg/dL Estim Creat Clear Calc 90 ml/min Estimated GFR > 60 (59 - ) Glucose 99 (65-110) mg/dL Calcium 9.9 (8.4-10.2) mg/dL Total Bilirubin 0.4 (0.2-1.3) mg/dL AST 33 (14-36) U/L ALT 21 (6-35) U/L Alkaline Phosphatase 92 (38-126) U/L Troponin I < 0.012 (0.000-0.034) ng/mL Total Protein 8.6 H (6.3-8.2) g/dL Albumin 4.6 (3.5-5.1) g/dL Lipase 56 (23-300) U/L Imaging Data Radiologist's impression: ITS Impressions Chest X-Ray 02/15/25 14:12 IMPRESSION: 1. No acute cardiopulmonary findings. Discharge Plan Discharge Clinical Impression: Palpitations Patient Disposition: Home Condition: Stable Instructions: Heart Palpitations (ED) Additional Instructions: Please follow up with your doctor; you can always return for any further issues. Patient Language: Portuguese Prescriptions: No Action escitalopram oxalate 20 mg tablet 20 mg PO DAILY Qty: 90 1RF vitamin B complex Tablet 1 tablet PO HS omega-3 fatty acids Capsule 1 cap PO HS ascorbate calcium (vitamin C) 500 mg Capsule 1 mg PO HS ascorbic acid-zinc sulfate 1 tab-cap PO HS doxepin 100 mg capsule 100 mg PO QHS Qty: 90 1RF Follow-up/Referrals: Nelly Read APRN [Primary Care Provider, Internal Medicine]
== END 2025-02-15 15:24 | disposition home or self-care (01) ==
PROVIDERS: Emergency Provider Emergency Medicine; PCP Nurse Practitioner Family
DX: R00.2 Palpitations (principal); F41.9 Anxiety disorder, unspecified; Z87.891 Personal history of nicotine dependence; Z90.710 Acquired absence of both cervix and uterus; Z90.79 Acquired absence of other genital organ(s); R00.0 Tachycardia, unspecified; I49.1 Atrial premature depolarization
CPT/HCPCS: 36415; 71046; 80053; 83690; 84484; 85025; 85610; 85730; 93005; 96360; 99284; A9270; J7120

== ENCOUNTER 2025-03-14 10:05 | Outpatient (CLI) | payer BC, SELFPAY ==
--- OUTSIDE RECORDS SUMMARY | 2025-02-22 04:00 | XMS_ITS ---
Author Organization [facility] [employer] [facility] Address [facility] [facility] [address] [place] [address] Care Team Providers Care Manager Play Name Role Phone Nelly Read APRN Primary Care Provider Antelmo Tabares Unavailable [phone] Kendal Muñoz Unavailable [phone] REASON FOR VISIT r/s with Antelmo Social History Sex Assigned At : Social History Observation Description Sex Assigned At Female Encounters Encounter [facility] Date [email or web address] [address] [facility] [address] [place] [address] 02/22/2025 Kendal Muñoz Plan Of Treatment Next Appt Details Provider Name:Kyler Pettit , 03/15/2025 10:00:00 AM, [facility] [place] [address], [address], [address], Provider Name:Antelmo Boone, 03/29/2025 03:30:00 PM, [address] [place] [address] [address], [address], [address], Progress Notes * Caitlin KATZDOB: [birth year] (44 yo F)Acc No.[id number]:02/22/2025 Patient: Herbert gardeniamohanCaitlin oseguera Provider: AZALEA SILVERHNP :1980 A ge:44 Y S ex:Female Date:02/22/2025 Address:[address] [facility] Pcp:Nelly Read APRN Subjective: * Chief Complaints: * r /s with Antelmo Billing Information: * Procedure Codes: * Electronic signature of GENO Vazquez on 03/14/2025 at 10:31 AM PHARMACY RESOURCE TECH Sign off status: Pending * Provider: GENO SILVER Date: 04/25/2024 Generated for Rimma sanches/Patti/Jackeline on: 10:31 AM PHARMACY RESOURCE TECH
--- OUTSIDE RECORDS SUMMARY | 2025-03-14 02:45 | XMS_ITS ---
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 depression 2/10, self rated anxiety 9/10, difficulty sleeping, irritability, difficulty concentrating. * Medical History: Past Psychiatric History: Anxiety Disorder chronic fatigue syndrome: Yes depression Medical History Verified * Surgical History: Tonsils 1989 Laperscopic 2008 Hysterectomy 2009 Laperscopic 2020 Laperscopic 2023 Right Ankle 2023 Surgical History verified. * Hospitalization/Major Diagno stic Procedure: surgeries Hospitalization Verified. * Family History: M aternal Aunt: Anxiety Disorder. P aternal Aunt: Anxiety Disorder. F ather: Anxiety Disorder,Bipolar Disorder. M other: Anxiety Disorder. P aternal Grandfather: Bipolar Disorder,ADHD. M aternal Grandfather: None. M aternal Grandmother: None. B rother: Anxiety Disorder,Bipolar Disorder,Alcohol Abuse. S ister: Major Depressive Episode,Bipolar Disorder. S on: None. D aughter: Anxiety Disorder. 3 brother(s) , 4 sister(s) . 1 son(s) , 1 daughter(s) . . F amily History Verified.. * Social History: T obacco Use: T obacco Control (Standard) T obacco use: F ormer smoker W hen did you start smoking? 0 03/16/1999 W hen did you stop smoking? 0 03/16/2023 H ow long has it been since you last smoked??1-5 years S exual History: S exual Abuse H istory: h istory in the past D rug/Alcohol: D rugs H ave you used drugs other than those for medical reasons in the past 12 months? N o AUDIT-C (Standard) D id you have a drink containing alcohol in the past year? N o H ousehold: Josh Vazquez arital status: m arried N umber of adults in household: 2 N umber of children in household: 1 M iscellaneous: S afety issues D o you feel safe at home? Y es A re there any firearms in the house? Y es Education D o you go to school? 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 S ocial History: Josh Vazquez arital Status: M arried N umber of Adults in household: 2 N umber of Children in Household: 1 S ocial History Verified. * Medications: T akingbusPIRone HCl 5 MG Tablet 1 tablet Orally Twice a day Doxepin HCl 100 MG Capsule 1 capsule at bedtime Orally Once a day Escitalopram Oxalate 20 MG Tablet 1 tablet Orally Once a day Medication List reviewed and reconciled with the patientTaking busPIRone HCl 5 MG Tablet 1 tablet Orally Twice a day Taking Doxepin HCl 100 MG Capsule 1 capsule at bedtime Orally Once a day Taking Escitalopram Oxalate 20 MG Tablet 1 tablet Orally Once a day Medication List reviewed and reconciled with the patient * Allergies: t raZODone: vomiting - Side EffectsStrawberries Objective: * Vitals: B P:116/79mm Hg, HR:112/min, Wt:217lbs, Wt-k.43 kg, Ht: 67 in, Ht-cm: 170.18 cm, BMI:33.98Index, Body Surface Area: 2.15. * Examination: G eneral Examination: Psych: a lert and oriented x 3, cognitive function intact, cooperative with exam, maintains good eye contact, with good judgement and insight, normal affect / mood, with no auditory or visual hallucinations, speech is clear and coherent, thought process is logical and goal directed without suidical ideation or delusions. M ental Status Examination: Patient cooperative throughout the interview. Speech demonstrates some difficulty with attention during conversation, as evidenced by spacing out during the interview and requiring redirection when asked questions. Mood described as anxiety rated as 9 out of 10, and depression rated as 2 out of 10. Thought content: Denies current suicidal or homicidal ideation. No evidence of delusions discussed. Perceptions: Denies auditory or visual hallucinations. Cognition: Demonstrates significant attention and concentration difficulties, reporting inability to focus on studying, mind wandering to other activities, and zoning out during conversations. Patient acknowledges spacing out during the clinical interview itself. Diagnostic Test Results and Labs: Adult Self-Report Scale (ASRS): Part A: 6 (threshold for ADHD symptoms is 4 or more) Part B: 02/24 Interpretation: Indicative of ADHD symptoms (Part A score >3) Depression self-ratin/10 (where 10 is the worst) Anxiety self-ratin/10 (where 10 is the worst). Assessment: * Assessment: 1. A DHD (attention deficit hyperactivity disorder) evaluation - Z13.39 (Primary) ?2. O ther insomnia - G47.09 3 . G AD (generalized anxiety disorder) - F41.1 4 . U rine test negative - Z32.02 5 . E ncounter for screening for other disorder - Z13.89 Plan: * Treatment: 2. O ther insomnia Decrease Doxepin HCl Capsule, 25 MG, 3 capsules once a day for 7 days, 2 capsules once a day for 7 days, 1 capsule once a day for 16 days, Orally, nightly, 30 days, 51, Refills 0. 3. G AD (generalized anxiety disorder) Continue Escitalopram Oxalate Tablet, 20 MG, 1 tablet, Orally, Once a day; S tart busPIRone HCl Tablet, 5 MG, 1 tablet, Orally, Twice a day, 30 days, 60, Refills 0. 4. O thers Notes: Buspirone material was printed Assessment and plan reviewed with patient Call for problems with medication, side effects or need for dosage change Compliance issues reviewed Discussed the risks/benefits of this medication Discussed medication side effects Return if symptoms worsen Treatment options reviewed. discussed that it can take weeks to see full therapeutic effects of psychotropic medications. discussed when to seek emergency services. discussed crisis prevention hotline 988. 1. ADHD Evaluation ASRS Part A: 09/19 (threshold >3) - Assessment: Patient referred by primary care physician for ADHD testing due to significant concentration difficulties impacting ability to study while working and attending school full-time. Reports mind wandering, difficulty completing projects, and being easily distracted. Adult Self-Reporting Scale completed during visit showed Part A score of 7 out of 7 with Part B providing supportive symptoms. Patient endorsed frequent to very frequent symptoms including trouble wrapping up project details, difficulty organizing tasks, problems remembering appointments, avoiding tasks requiring thought, fidgeting, feeling overly active, making careless mistakes, difficulty maintaining attention on boring/repetitive work, and being easily distracted. - Plan: a. Order ADHD testing b. Follow up one week after testing completion to review results 2. Sleep Disturbance - Assessment: Patient reports poor sleep quality despite watch indicating 8 hours of sleep. Remembers everything while sleeping, can hear everything, and wakes up exhausted. Currently on doxepin 100 mg which is ineffective for sleep at this high dose, as doxepin only works for sleep at 3-6 mg doses and becomes activating at higher doses. Patient has tried multiple sleep aids including melatonin, Benadryl, hydroxyzine, and various blgw-lgn-cscktxi options without success. Reports recent onset of snoring and leg movements at night with arm flinging sensations. - Plan: a. Decrease doxepin with taper: 3 tablets (75 mg) for 7 days, then 2 tablets (50 mg) for 7 days, then 1 tablet (25 mg) for 7 days b. Patient to coordinate sleep apnea testing through primary care physician once new insurance is active c. Follow up after doxepin taper completion 3. Anxiety - Assessment: Patient rates current anxiety as 9/10. Currently on escitalopram 20 mg daily with zero reported benefit. Previous trials include fluoxetine for 2 years (ineffective), hydroxyzine (ineffective for both sleep and anxiety), and lorazepam (caused nausea and shakiness even at reduced dose). Patient has history of depression with both children and reports family history of alcoholism. - Plan: a. Start buspirone 5 mg twice daily (morning and 3 PM, not evening due to potential activating effects) b. Explained mechanism of action: buspirone increases serotonin availability leading to eventual receptor upregulation over 4-6 weeks c. Counseled on expected timeline: 4-6 weeks for therapeutic effect d. Warned about potential initial side effects in first 2 weeks including GI symptoms and headaches due to anxiety sensitivity e. Advised to continue through initial side effect period as symptoms typically resolve around 2 weeks Follow-up: - Plan: Follow up one week after ADHD testing completion to review results. Follow up after doxepin taper completion. * Labs: * L ab: UDT (10 Panel) (Collection Date & Time - 03/14/2025 08:15 AM) Value Reference Range A mphetamine (AMP) n * B uprenorphine (BUP) n * O xazepam (BZO) n * C ocaine (MARGARETTE) n * M ethamphetamine (mAMP) n * M ethylenedioxymethamphetamine (MDMA) n * M orphine (MOP) n * M ethadone (MTD) n * O xycodone (OXY) n * T HC n * Procedure Codes: 8 0306 DRUG TST PRSMV READ INSTRMNT ASSTD DIR OPT OBS, Modifiers: QW 92786 BEHAV ASSMT W/SCORE & DOCD/STAND [id number] PSYCHIATRIC DIAGNOSTIC EVAL W/MEDICAL [id number] VISIT COMPLEXITY INHERENT TO ONGOING CARE RELATED TO A PATIENT'S SINGLE, SERIOUS CONDITION OR A COMPLEX [id number] URINE TEST VISUAL COLOR CMPRSN METHS * Preventive Medicine: Counseling: S afety: Discussed the risk and benefits of medication(s)? Y es SSRI/SNRI side effects discussed including but not limited to, gastric upset, nausea, vomiting, diarrhea and/or constipation, weight changes, sexual side effects including loss of libido, increased suicidal thoughts/behaviors in children and young adults, and serotonin syndrome. guns in home: D iscussed the importance of keeping ammunition out of the hands of children, Discussed the importance of storing guns without ammunition Screenings: D epression screening Have you had a recent depression screening? Y es Date of depression screenin A lcohol misuse screening Have you had a recent alcohol misuse screening? Y es Date of alcohol misuse screenin * Follow Up: (Reason: ADHD test) Billing Information: * Procedure Codes: 81561 DRUG TST PRSMV READ INSTRMNT ASSTD DIR OPT OBS. Modifiers: QW 77642 BEHAV ASSMT W/SCORE & DOCD/STAND INSTRUMENT. 16840 PSYCHIATRIC DIAGNOSTIC EVAL W/MEDICAL SERVICES. G2211 VISIT COMPLEXITY INHERENT TO ONGOING CARE RELATED TO A PATIENT'S SINGLE, SERIOUS CONDITION OR A COMPLEX CONDITION. 53692 URINE TEST VISUAL COLOR CMPRSN METHS. * ISION DANCER Sign off status: Completed true * Provider: GENO Soria Date: Generated for Rimma sanches/Patti/eTransmitting on: 10:31 AM PRECISION DANCER
--- OUTSIDE RECORDS SUMMARY | 2025-03-14 10:31 | XMS_ITS | Patient Health Record ---
Author Organization 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 Problems Problem Type SNOMED Code ICD Code Onset Dates Problem Status W/U Status Risk Notes Problem Insomnia (129013275) Other insomnia (G47.09) Active confirmed Problem Generalized anxiety disorder (98649532) CHEYANNE (generalized anxiety disorder) (F41.1) Active confirmed Vital Signs Heart Rate 112 /min 03/14/2025 Height-cm 170.18 cm 03/14/2025 Blood pressure diastolic 79 mm Hg 03/14/2025 Weight-kg 98.43 kg 03/14/2025 Height 67 in 03/14/2025 Blood pressure systolic 116 mm Hg 03/14/2025 Weight 217 lbs 03/14/2025 BMI 33.98 kg/m2 03/14/2025 Procedures Procedure Date Ordered Date Performed Result Body Sit e ADHD Testing 03/14/2025 N/A Encounters Encounter Location Date Provider Diagnosis [facility] Cognitive Code [facility] [address] [address] 03/14/2025 Antelmo Boone ADHD (attention deficit hyperactivity disorder) evaluation Z13.39 ; Other insomnia G47.09 ; CHEYANNE (generalized anxiety disorder) F41.1 ; Urine test negative Z32.02 and Encounter for screening for other disorder Z13.89 [facility] [address] [place] [address] 01/06/2025 Kendal Muñoz [facility] [employer] [address] [place] [address] 01/06/2025 Kendal Muñoz Assessments Encounter Date Diagnosis (ICD Code) Assessment Notes Treatment Notes Treatment Clinical Notes Section Notes 03/14/2025 Other insomnia (ICD-10 - G47.09) 03/14/2025 ADHD (attention deficit hyperactivity disorder) evaluation (ICD-10 - Z13.39) 03/14/2025 ASRS part A: 08/19, part B: 02/2403/14/2025 CHEYANNE (generalized anxiety disorder) (ICD-10 - F41.1) [...] aids including melatonin, Benadryl, hydroxyzine, and various yakf-tgt-gjvmbes options without success. Reports recent onset of [...] after doxepin taper completion. Plan Of Treatment Pending Test Test Name Order Date ADHD Testing 03/14/2025 Next Appt Details Provider Name:Kyler Pettit , 03/15/2025 10:00:00 AM, [address], [facility] [address], [place], [address], Provider Name:Antelmo Boone, 03/29/2025 03:30:00 PM, [address], [address], [place], [address], Insurance Providers Payer Name Payer Address Payer Phone Subscriber Number Group Number Insured Name Patient Relationship to Insured Coverage Start Date Coverage End Date [facility] [address] [place] [address] [id number] Caitlin Cerda Self - patient is the insured Medical (General) History Medical History History ICD Code Past Psychiatric History: Anxiety Disord er chronic fatigue syndrome: Yes depression Surgical History Surgery Date(Month/Year) Tonsils 1989 Laperscopic 2007 Hysterectomy 2008 Laperscopic 2020 Laperscopic 2023 Right Ankle 2023 Hospitalization History Reason Date(Month/Year) surgeries
--- OUTSIDE RECORDS SUMMARY | 2025-03-14 10:31 | XMS_ITS | Clinical Summary ---
Author Organization [facility] Address [address] [place] [address] Care Team Providers Care Boiler Tenders Supervisor Name Role Phone Tony Sparks MD Primary Care Provider [phone] Tony Sparks MD Unavailable [phone] Allergies Active Allergy Reactions Criticality Noted Date Comments [place] Hives Reaction: Hives, Tramadol Dizziness Low 10/11/2019 [...] (06/13/2020): Added automatically from request for surgery [id number] Pelvic pain in female 06/13/2020 Overview (06/13/2020): Added automatically from request for surgery [id number] Adnexal tenderness 10/11/2019 Anxiety 10/11/2019 Functional cyst [...] on file Legal 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
[2025-03-14 10:51] LABS: Cholesterol 229 mg/dL (0-200); HDL Direct 28 mg/dL; Triglycerides 236 mg/dL (<150)
[2025-03-14 10:53] LABS: Iron 81 ug/dL (37-170)
[2025-03-14 11:02] LABS: Percent Iron Saturation 29 % (20-50)
[2025-03-14 11:25] LABS: Thyroid Stimulating Hormone Reflex 3.900 uIU/mL (0.465-4.68)
[2025-03-14 11:35] LABS: Ferritin 35.90 ng/mL (6.24-137)
[2025-03-14 11:59] LABS: Vitamin B12 413.0 pg/mL (239-931)
== END 2025-03-14 10:06 | disposition home or self-care (01) ==
PROVIDERS: PCP Nurse Practitioner Family; Visit Provider Nurse Practitioner Family
DX: E55.9 Vitamin D deficiency, unspecified (principal); E78.5 Hyperlipidemia, unspecified; R79.0 Abnormal level of blood mineral; G25.81 Restless legs syndrome; Z13.29 Encounter for screening for other suspected endocrine disorder; F41.1 Generalized anxiety disorder; E53.8 Deficiency of other specified B group vitamins
CPT/HCPCS: 36415; 80061; 82306; 82607; 82728; 82746; 83540; 83550; 84443